=== PATIENT | female | born 1940 | race Caucasian/White ===

== ENCOUNTER 2018-04-13 12:45 | Outpatient (RCR) | payer MEDICARE, SELFPAY ==
--- NOTE | 2018-01-31 07:24 | PT.OIE ---
Current Diagnoses Unilateral primary osteoarthritis, left knee (01/30/18) Provider Visit Care Team Role Provider Type Doctor MD Kiel Attending Provider Non-Staff Specialty: Medical Address: Phone: Fax: Email: Physical Therapy Initial Evaluation PT-OP-A Visit Information Start: 01/30/18 15:55 Freq: Status: Active Protocol: Document 01/30/18 15:56 EA (Rec: 01/30/18 16:06 EA [id number]) Out-Patient Physical Therapy Visit Information Visit Information Visit Type Initial Evaluation Total Visit Minutes 45 Evaluation Information Evaluation Date 01/30/18 PT-OP-B Current Condition Start: 01/30/18 15:55 Freq: Status: Active Protocol: Document 01/30/18 15:56 EA (Rec: 01/30/18 16:06 EA [id number]) Current Condition History of Current Condition Onset Date S/P left TKA 01/03/18 Current Complaints Decreased functional mobility tolerance due to pain History of Current Condition S/P Left TKA 01/03/18 Prior Treatments and Tests 2 weeks Physical rehabilation at [place] Future Testing and Treatments Planned Follow up to surgeon on January Treatment Goals Patient/Caregiver Goals 1. Be able to perform cyling 2. be able to row the boat 3. 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 Patient Reported Progress Improving Patient Questionnaires Lower Extremity Functional Scale LEFS Impairment 40 to 59% Impaired (Score 32- 47) OP-PT Pain Assessment Pain Assessment Grid Paper Pain Assessment Grid Completed Yes Home Pain Medication Use Pain Medications Used Yes Patient Goal see chart Pain Behaviors Pain Behaviors Guarding Comments Pain Comments Noted muscle guarding and decreased weight bearing tolerance. PT-OP-F Manual Assessment Start: 01/30/18 15:55 Freq: Status: Active Protocol: Document 01/30/18 16:06 EA (Rec: 01/30/18 16:35 EA [id number]) Manual Assessments Soft Tissue Assessment Soft Tissue Mobility Assessment Tight left hasmtring, quads, calf mucles Joint Mobility Assessment Joint Mobility Assessment N/A at this time due ms guarding PT-OP-G Mobility & Gait Start: 01/30/18 15:55 Freq: Status: Active Protocol: Document 01/30/18 16:06 EA (Rec: 01/30/18 16:35 EA [id number]) OP Gait Assessment Gait Gait Assistance Required: Independent Able to Maintain Weight Bearing Status Yes During Gait Assistive Devices Assistive Device Straight Cane Gait Deviations General Gait Pattern Antalgic Factors Limiting Gait Function Factors Limiting Gait Function Limited Range of Motion Pain Stair Climbing Evaluation Evaluation Level of Assist On Stairs Independent Devices Stair Climbing Assistive Devices Straight Cane Technique/Endurance Stair Climbing Direction Ascend Stair Climbing Technique Step to Step Number of Steps Climbed 6 Query Text: PT-OP-J Posture/Palpation/Skin Start: 01/30/18 15:55 Freq: Status: Active Protocol: Document 01/30/18 16:06 EA (Rec: 01/30/18 16:35 EA [id number]) Palpation Assessment Location One Palpation Location left quads, hamstring, calf Palpation Findings Muscle Guarding Tenderness Skin Assessment Circumference Measurement 1 Location left mid knee joint Measurement (Centimeters) 42 Comments Left 42 cm; R 37 Incisional Assessment Incision Appearance/Comments no acute signs of inflammation /infection and is healing well . PT-OP-K Range of Motion Start: 01/30/18 15:55 Freq: Status: Active Protocol: Document 01/30/18 16:06 EA (Rec: 01/30/18 16:35 EA [id number]) Knee Goniometric Range of Motion Knee Measured in Degrees Right Patient Position Supine Flexion Active (120-145 degrees) 125 Extension Active (degrees) 0 Left Patient Position Supine Flexion Active (120-145 degrees) 75 L Flexion Passive (120-145 degrees) 78 L Extension Active (degrees) 10 ROM Limitations Knee ROM Limitations Soft Tissue Tightness Pain PT-OP-M Strength Start: 01/30/18 15:55 Freq: Status: Active Protocol: Document 01/30/18 16:06 EA (Rec: 01/30/18 16:35 EA [id number]) Hip Strength Hip Manual Muscle Testing Right Flexion (L2) 5 Normal Extension (S1) 5 Normal Abduction 5 Normal Adduction 5 Normal External Rotation 4+ Good+ Internal Rotation 4+ Good+ Left Flexion (L2) 3+ Fair+ Extension (S1) 4- Good- Abduction 4- Good- Adduction 3+ Fair+ Knee Strength Knee Manual Muscle Testing Right Flexion (S2) 5 Normal Extension (L3) 5 Normal Left Reason Not Measured Orthopedic Precautions PT-OP-R Modalities Start: 01/30/18 15:55 Freq: Status: Active Protocol: Document 01/30/18 16:06 EA (Rec: 01/30/18 16:35 EA [id number]) Hot Pack/Cold Pack Treatment Cold Pack Patient Position Hooklying Treatment Duration (minutes) 15 Patient Tolerance Good PT-OP-T Assessment and Plan Start: 01/30/18 15:55 Freq: Status: Active Protocol: Document 01/30/18 16:06 EA (Rec: 01/30/18 16:35 EA [id number]) Physical Therapy Assessment Rehab Potential Rehabilitation Potential Good Evaluation Complexity Number of Personal Factors/Comorbidities 1-2 Number of Body Systems Impaired 1-2 Clinical Presentation at Evaluation Stable Impairments Impairments Activity Tolerance Edema Pain ROM Soft Tissue Mobility Strength Goals Four Impairment LEFS Funding Coordinator Goal (LTG) Patient will reach 55/80 of LEFs LTG Duration 6 weeks Three Impairment knee ROM Funding Coordinator Goal (LTG) Patient will exhibit left knee flexion/extnsion of 0-125 for functional squating activities. LTG Duration 6 weeks Two Impairment edema Short Term Goal (STG) Patient will exhibits exhibit decrease left knee edema to decrease pain and imrpove weight bearing tolerance LTG Duration 3 weeks One Impairment Impaired knee strength Alf Goal (LTG) Patient will exhibit MMT of 4/ 5 to left knee flexors and extensors to enable patient perform stairs and other functional mobility without difficulty LTG Duration 6 wks Assessment Summary Assessment Pleasant 77 y/o F patient presented with left TKA on 08/12 and exhibited good healing with no signs of acuet infection/inflammation. However, patient exhibits knee extensors/ flexors weakness and limited knee ROM w/ muscle guarding and tightness. Due to impaired strength and ROM, patient demonstrated gait difficulty and weight bearing tolerance activities. In my professsional, patient requires skilled PT to address the aforementioned deficits to reach highest functional mobility. Patient demonstrates good potential for recovery. Physical Therapy Plan Frequency and Duration Frequency of Treatment 2x/Week Plan of Care Start Date 01/30/18 Plan of Care End Date 03/27/18 Therapeutic Interventions Therapeutic Interventions Balance Training Gait Training Home Exercise Program Joint Mobilizations Manual Therapy Self-Care/Home Management Soft Tissue Mobilization Therapeutic Activities Therapeutic Exercises Modalities Cold Pack/Ice Massage Electric Stimulation Hot Packs Ultrasound Provider Signature Date
--- NOTE | 2018-02-01 14:13 | PT.OTN ---
Current Diagnoses Unilateral primary osteoarthritis, left knee (02/01/18) Physical Therapy Treatment Note PT-OP-A Visit Information Start: 01/30/18 15:55 Freq: Status: Active Protocol: Document 02/01/18 13:59 EA (Rec: 02/01/18 14:10 EA [id number]) Out-Patient Physical Therapy Visit Information Visit Information Visit Type Treatment Note Visit Start Time 12:15 Visit Stop Time 01:15 Total Visit Minutes 60 Visit Number 2 PT-OP-B Current Condition Start: 01/30/18 15:55 Freq: Status: Active Protocol: Document 01/30/18 15:56 EA (Rec: 01/30/18 16:06 EA [id number]) Current Condition History of Current Condition Onset Date S/P left TKA 01/03/18 Current Complaints Decreased functional mobility tolerance due to pain History of Current Condition S/P Left TKA 01/03/18 Prior Treatments and Tests 2 weeks Physical rehabilation at [place] Future Testing and Treatments Planned Follow up to surgeon on January Treatment Goals Patient/Caregiver Goals 1. Be able to perform cyling 2. be able to row the boat 3. 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 PT-OP-F Manual Assessment Start: 01/30/18 15:55 Freq: Status: Active Protocol: Document 01/30/18 16:06 EA (Rec: 01/30/18 16:35 EA [id number]) Manual Assessments Soft Tissue Assessment Soft Tissue Mobility Assessment Tight left hasmtring, quads, calf mucles Joint Mobility Assessment Joint Mobility Assessment N/A at this time due ms guarding PT-OP-G Mobility & Gait Start: 01/30/18 15:55 Freq: Status: Active Protocol: Document 01/30/18 16:06 EA (Rec: 01/30/18 16:35 EA [id number]) OP Gait Assessment Gait Gait Assistance Required: Independent Able to Maintain Weight Bearing Status Yes During Gait Assistive Devices Assistive Device Straight Cane Gait Deviations General Gait Pattern Antalgic Factors Limiting Gait Function Factors Limiting Gait Function Limited Range of Motion Pain Stair Climbing Evaluation Evaluation Level of Assist On Stairs Independent Devices Stair Climbing Assistive Devices Straight Cane Technique/Endurance Stair Climbing Direction Ascend Stair Climbing Technique Step to Step Number of Steps Climbed 6 Query Text: PT-OP-J Posture/Palpation/Skin Start: 01/30/18 15:55 Freq: Status: Active Protocol: Document 01/30/18 16:06 EA (Rec: 01/30/18 16:35 EA [id number]) Palpation Assessment Location One Palpation Location left quads, hamstring, calf Palpation Findings Muscle Guarding Tenderness Skin Assessment Circumference Measurement 1 Location left mid knee joint Measurement (Centimeters) 42 Comments Left 42 cm; R 37 Incisional Assessment Incision Appearance/Comments no acute signs of inflammation /infection and is healing well . PT-OP-K Range of Motion Start: 01/30/18 15:55 Freq: Status: Active Protocol: Document 01/30/18 16:06 EA (Rec: 01/30/18 16:35 EA [id number]) Knee Goniometric Range of Motion Knee Measured in Degrees Right Patient Position Supine Flexion Active (degrees) 125 Extension Active (degrees) 0 Left Patient Position Supine Flexion Active (degrees) 75 Flexion Passive (degrees) 78 Extension Active (degrees) 10 Knee ROM Limitations Knee ROM Limitations Soft Tissue Tightness Pain PT-OP-M Strength Start: 01/30/18 15:55 Freq: Status: Active Protocol: Document 01/30/18 16:06 EA (Rec: 01/30/18 16:35 EA [id number]) Hip Strength Hip Manual Muscle Testing Right Flexion (L2) 5 Normal Extension (S1) 5 Normal Abduction 5 Normal Adduction 5 Normal External Rotation 4+ Good+ Internal Rotation 4+ Good+ Left Flexion (L2) 3+ Fair+ Extension (S1) 4- Good- Abduction 4- Good- Adduction 3+ Fair+ Knee Strength Knee Manual Muscle Testing Right Flexion (S2) 5 Normal Extension (L3) 5 Normal Left Reason Not Measured Orthopedic Precautions PT-OP-Q Treatments Start: 01/30/18 15:55 Freq: Status: Active Protocol: Document 02/01/18 13:59 EA (Rec: 02/01/18 14:10 EA [id number]) Cardio Equipment Recumbent Stepper (Sci-Fit) Duration (Minutes) 10 Resistance 1-2 Seat Position 13-11 Gym Equipment Shuttle Recovery Unilateral Squats Resistance 1 cord Reps/Time 15 x 2 Bilateral Squats Details 0-90 knee flexion Resistance 2 cords Reps/Time 15 x 2 Therapeutic Exercises Supine Exercises 1 Supine Exercise Name Quads over roll Side left Equipment Used Rolled towel Reps/Minutes x 5 SH x 10 reps Sitting Exercises 1 Sitting Exercise Name Full quad extnsion Side left Reps/Minutes 15 reps x 2 Standing Exercises 3 Standing Exercise Name Heel and toe raises Comments x 15 reps x 2 2 Standing Exercise Name // bars sit to stand Comments x 10 reps x 2 1 Standing Exercise Name hip 3 way and knee flexion Reps/Minutes 15 x 2sets Manual Therapy Treatment Soft Tissue Mobilization 1 Body Location left Hams, Quads, calves Mobilization Type Manual Lymphatic Drainage Myofascial Release Intensity/Depth Superficial Body Position Supine PT-OP-R Modalities Start: 01/30/18 15:55 Freq: Status: Active Protocol: Document 02/01/18 13:59 EA (Rec: 02/01/18 14:10 EA [id number]) Electric Stimulation Electric Stimulation Interferential Current (IFC) Body Location left quads Duration (Minutes) 15 Combined With Heat/Cold Cold Pack PT-OP-T Assessment and Plan Start: 01/30/18 15:55 Freq: Status: Active Protocol: Document 02/01/18 13:59 EA (Rec: 02/01/18 14:10 EA [id number]) Physical Therapy Assessment Assessment Summary Assessment Tolerated treatment well. Physical Therapy Plan Next Visit Focus/Plan Next Visit Plan Cont. with current plan.
--- NOTE | 2018-02-05 14:28 | PT.OTN ---
Current Diagnoses Unilateral primary osteoarthritis, left knee (02/05/18) Physical Therapy Treatment Note PT-OP-A Visit Information Start: 01/30/18 15:55 Freq: Status: Active Protocol: Document 02/05/18 14:17 EA (Rec: 02/05/18 14:28 EA [id number]) Out-Patient Physical Therapy Visit Information Visit Information Visit Type Treatment Note Total Visit Minutes 60 Visit Number 3 PT-OP-B Current Condition Start: 01/30/18 15:55 Freq: Status: Active Protocol: Document 01/30/18 15:56 EA (Rec: 01/30/18 16:06 EA [id number]) Current Condition History of Current Condition Onset Date S/P left TKA 01/03/18 Current Complaints Decreased functional mobility tolerance due to pain History of Current Condition S/P Left TKA 01/03/18 Prior Treatments and Tests 2 weeks Physical rehabilation at [place] Future Testing and Treatments Planned Follow up to surgeon on January Treatment Goals Patient/Caregiver Goals 1. Be able to perform cyling 2. be able to row the boat 3. 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 Current Functional Impairments (Reported) Functional Limitations- ADL's Moderate difficulty w/ driving , toileting and bathig Functional Limitations- Mobility/Gait Moderate difficulty w/ uneven surface and stairs Functional Limitations- Recreation/ Unable at this time Hobbies PT-OP-C Subjective Start: 01/30/18 15:55 Freq: Status: Active Protocol: Document 02/05/18 14:17 EA (Rec: 02/05/18 14:28 EA [id number]) OP-PT Subjective Patient Comments Patient Comments Patient reports left lateral calf pain increased while at sleep; states had a long walk yesterday in the park and unable to peform some of the HEP. Denies warmth ans swelling to left calf. PT-OP-F Manual Assessment Start: 01/30/18 15:55 Freq: Status: Active Protocol: Document 01/30/18 16:06 EA (Rec: 01/30/18 16:35 EA [id number]) Manual Assessments Soft Tissue Assessment Soft Tissue Mobility Assessment Tight left hasmtring, quads, calf mucles Joint Mobility Assessment Joint Mobility Assessment N/A at this time due ms guarding PT-OP-G Mobility & Gait Start: 01/30/18 15:55 Freq: Status: Active Protocol: Document 01/30/18 16:06 EA (Rec: 01/30/18 16:35 EA [id number]) OP Gait Assessment Gait Gait Assistance Required: Independent Able to Maintain Weight Bearing Status Yes During Gait Assistive Devices Assistive Device Straight Cane Gait Deviations General Gait Pattern Antalgic Factors Limiting Gait Function Factors Limiting Gait Function Limited Range of Motion Pain Stair Climbing Evaluation Evaluation Level of Assist On Stairs Independent Devices Stair Climbing Assistive Devices Straight Cane Technique/Endurance Stair Climbing Direction Ascend Stair Climbing Technique Step to Step Number of Steps Climbed 6 Query Text: PT-OP-J Posture/Palpation/Skin Start: 01/30/18 15:55 Freq: Status: Active Protocol: Document 01/30/18 16:06 EA (Rec: 01/30/18 16:35 EA [id number]) Palpation Assessment Location One Palpation Location left quads, hamstring, calf Palpation Findings Muscle Guarding Tenderness Skin Assessment Circumference Measurement 1 Location left mid knee joint Measurement (Centimeters) 42 Comments Left 42 cm; R 37 Incisional Assessment Incision Appearance/Comments no acute signs of inflammation /infection and is healing well . PT-OP-K Range of Motion Start: 01/30/18 15:55 Freq: Status: Active Protocol: Document 01/30/18 16:06 EA (Rec: 01/30/18 16:35 EA [id number]) Knee Goniometric Range of Motion Knee Measured in Degrees Right Patient Position Supine Flexion Active (degrees) 125 Extension Active (degrees) 0 Left Patient Position Supine Flexion Active (degrees) 75 Flexion Passive (degrees) 78 Extension Active (degrees) 10 Knee ROM Limitations Knee ROM Limitations Soft Tissue Tightness Pain PT-OP-M Strength Start: 01/30/18 15:55 Freq: Status: Active Protocol: Document 01/30/18 16:06 EA (Rec: 01/30/18 16:35 EA [id number]) Hip Strength Hip Manual Muscle Testing Right Flexion (L2) 5 Normal Extension (S1) 5 Normal Abduction 5 Normal Adduction 5 Normal External Rotation 4+ Good+ Internal Rotation 4+ Good+ Left Flexion (L2) 3+ Fair+ Extension (S1) 4- Good- Abduction 4- Good- Adduction 3+ Fair+ Knee Strength Knee Manual Muscle Testing Right Flexion (S2) 5 Normal Extension (L3) 5 Normal Left Reason Not Measured Orthopedic Precautions PT-OP-Q Treatments Start: 01/30/18 15:55 Freq: Status: Active Protocol: Document 02/05/18 14:17 EA (Rec: 02/05/18 14:28 EA [id number]) Cardio Equipment Recumbent Stepper (Sci-Fit) Duration (Minutes) 10 Resistance 1-2 Seat Position 13-10 Therapeutic Exercises Supine Exercises 1 Supine Exercise Name Quads over roll Side left Equipment Used Rolled towel Reps/Minutes x 5 SH x 10 reps Sitting Exercises 1 Sitting Exercise Name Full quad extnsion Side left Reps/Minutes 15 reps x 2 Standing Exercises 3 Standing Exercise Name Heel and toe raises Comments x 15 reps x 2 2 Standing Exercise Name Rails sit to stand Comments x 10 reps x 2 1 Standing Exercise Name hip 3 way and knee flexion Reps/Minutes 15 x 2sets Manual Therapy Treatment Soft Tissue Mobilization 1 Body Location left Hams and Quads Mobilization Type Manual Lymphatic Drainage Myofascial Release Intensity/Depth Superficial Body Position Supine PT-OP-R Modalities Start: 01/30/18 15:55 Freq: Status: Active Protocol: Document 02/05/18 14:17 EA (Rec: 02/05/18 14:28 EA [id number]) Electric Stimulation Electric Stimulation Interferential Current (IFC) Body Location left quads Duration (Minutes) 15 Combined With Heat/Cold Cold Pack Hot Pack/Cold Pack Treatment Cold Pack Patient Position Hooklying Treatment Duration (minutes) 15 Patient Tolerance Good PT-OP-T Assessment and Plan Start: 01/30/18 15:55 Freq: Status: Active Protocol: Document 02/05/18 14:17 EA (Rec: 02/05/18 14:28 EA [id number]) Physical Therapy Assessment Assessment Summary Assessment Patient tolerated treatment except with left calf STM due to increased sensitivity; no signs of acute inflammation noted. Recommended to patient to not miss sched surgeon appointment for furhter follow . Patient still exhibits limited knee flexion due to pain and quads tightness. Physical Therapy Plan Next Visit Focus/Plan Next Visit Plan Cont with serafin plan.
--- NOTE | 2018-02-07 17:00 | PT.OTN ---
Current Diagnoses Unilateral primary osteoarthritis, left knee (02/07/18) Physical Therapy Treatment Note PT-OP-A Visit Information Start: 01/30/18 15:55 Freq: Status: Active Protocol: Document 02/07/18 15:32 EA (Rec: 02/07/18 15:36 EA [id number]) Out-Patient Physical Therapy Visit Information Visit Information Visit Type Treatment Note Visit Start Time 12:15 Visit Stop Time 01:15 Total Visit Minutes 60 Visit Number 4 PT-OP-B Current Condition Start: 01/30/18 15:55 Freq: Status: Active Protocol: Document 01/30/18 15:56 EA (Rec: 01/30/18 16:06 EA [id number]) Current Condition History of Current Condition Onset Date S/P left TKA 01/03/18 Current Complaints Decreased functional mobility tolerance due to pain History of Current Condition S/P Left TKA 01/03/18 Prior Treatments and Tests 2 weeks Physical rehabilation at [place] Future Testing and Treatments Planned Follow up to surgeon on January Treatment Goals Patient/Caregiver Goals 1. Be able to perform cyling 2. be able to row the boat 3. 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 Current Functional Impairments (Reported) Functional Limitations- ADL's Moderate difficulty w/ driving , toileting and bathig Functional Limitations- Mobility/Gait Moderate difficulty w/ uneven surface and stairs Functional Limitations- Recreation/ Unable at this time Hobbies PT-OP-C Subjective Start: 01/30/18 15:55 Freq: Status: Active Protocol: Document 02/07/18 15:32 EA (Rec: 02/07/18 15:36 EA [id number]) OP-PT Subjective Patient Comments Patient Comments Patient reports knee pain is improving and she has been icing the knee and following recommended HEP. Patient also reports that she ahs the parts driver to bring her to [place] and that does not require her to drive. Patient Reported Progress Improving PT-OP-F Manual Assessment Start: 01/30/18 15:55 Freq: Status: Active Protocol: Document 01/30/18 16:06 EA (Rec: 01/30/18 16:35 EA [id number]) Manual Assessments Soft Tissue Assessment Soft Tissue Mobility Assessment Tight left hasmtring, quads, calf mucles Joint Mobility Assessment Joint Mobility Assessment N/A at this time due ms guarding PT-OP-G Mobility & Gait Start: 01/30/18 15:55 Freq: Status: Active Protocol: Document 01/30/18 16:06 EA (Rec: 01/30/18 16:35 EA [id number]) OP Gait Assessment Gait Gait Assistance Required: Independent Able to Maintain Weight Bearing Status Yes During Gait Assistive Devices Assistive Device Straight Cane Gait Deviations General Gait Pattern Antalgic Factors Limiting Gait Function Factors Limiting Gait Function Limited Range of Motion Pain Stair Climbing Evaluation Evaluation Level of Assist On Stairs Independent Devices Stair Climbing Assistive Devices Straight Cane Technique/Endurance Stair Climbing Direction Ascend Stair Climbing Technique Step to Step Number of Steps Climbed 6 Query Text: PT-OP-J Posture/Palpation/Skin Start: 01/30/18 15:55 Freq: Status: Active Protocol: Document 01/30/18 16:06 EA (Rec: 01/30/18 16:35 EA [id number]) Palpation Assessment Location One Palpation Location left quads, hamstring, calf Palpation Findings Muscle Guarding Tenderness Skin Assessment Circumference Measurement 1 Location left mid knee joint Measurement (Centimeters) 42 Comments Left 42 cm; R 37 Incisional Assessment Incision Appearance/Comments no acute signs of inflammation /infection and is healing well . PT-OP-K Range of Motion Start: 01/30/18 15:55 Freq: Status: Active Protocol: Document 01/30/18 16:06 EA (Rec: 01/30/18 16:35 EA [id number]) Knee Goniometric Range of Motion Knee Measured in Degrees Right Patient Position Supine Flexion Active (degrees) 125 Extension Active (degrees) 0 Left Patient Position Supine Flexion Active (degrees) 75 Flexion Passive (degrees) 78 Extension Active (degrees) 10 Knee ROM Limitations Knee ROM Limitations Soft Tissue Tightness Pain PT-OP-M Strength Start: 01/30/18 15:55 Freq: Status: Active Protocol: Document 01/30/18 16:06 EA (Rec: 01/30/18 16:35 EA [id number]) Hip Strength Hip Manual Muscle Testing Right Flexion (L2) 5 Normal Extension (S1) 5 Normal Abduction 5 Normal Adduction 5 Normal External Rotation 4+ Good+ Internal Rotation 4+ Good+ Left Flexion (L2) 3+ Fair+ Extension (S1) 4- Good- Abduction 4- Good- Adduction 3+ Fair+ Knee Strength Knee Manual Muscle Testing Right Flexion (S2) 5 Normal Extension (L3) 5 Normal Left Reason Not Measured Orthopedic Precautions PT-OP-Q Treatments Start: 01/30/18 15:55 Freq: Status: Active Protocol: Document 02/07/18 15:32 EA (Rec: 02/07/18 15:36 EA [id number]) Cardio Equipment Recumbent Stepper (Sci-Fit) Duration (Minutes) 10 Resistance 1-2 Seat Position 13-10 Gym Equipment Shuttle Recovery Unilateral Squats Resistance 1 cord Reps/Time 15 x 2 Bilateral Squats Details 0-90 knee flexion Resistance 2 cords Reps/Time 15 x 2 Therapeutic Exercises Supine Exercises 1 Supine Exercise Name Quads over roll Side left Equipment Used Rolled towel Reps/Minutes x 5 SH x 10 reps Sitting Exercises 1 Sitting Exercise Name Full quad extnsion Side left Reps/Minutes 15 reps x 2 Standing Exercises 3 Standing Exercise Name Heel and toe raises Comments x 15 reps x 2 1 Standing Exercise Name hip 3 way and knee flexion Reps/Minutes 15 x 2sets Manual Therapy Treatment Soft Tissue Mobilization 1 Body Location left Hams and Quads Mobilization Type Manual Lymphatic Drainage Myofascial Release Intensity/Depth Superficial Body Position Supine PT-OP-R Modalities Start: 01/30/18 15:55 Freq: Status: Active Protocol: Document 02/07/18 15:32 EA (Rec: 02/07/18 15:36 EA [id number]) Electric Stimulation Electric Stimulation Interferential Current (IFC) Body Location left quads Duration (Minutes) 15 Combined With Heat/Cold Cold Pack PT-OP-T Assessment and Plan Start: 01/30/18 15:55 Freq: Status: Active Protocol: Document 02/07/18 15:32 EA (Rec: 02/07/18 15:36 EA [id number]) Physical Therapy Assessment Assessment Summary Assessment Tolerated treatment well. Physical Therapy Plan Next Visit Focus/Plan Next Visit Plan Cont with current treatment.
--- NOTE | 2018-02-20 13:11 | PT.OTN ---
Current Diagnoses Unilateral primary osteoarthritis, left knee (02/20/18) Physical Therapy Treatment Note PT-OP-A Visit Information Start: 01/30/18 15:55 Freq: Status: Active Protocol: Document 02/20/18 13:05 EA (Rec: 02/20/18 13:11 EA [id number]) Out-Patient Physical Therapy Visit Information Visit Information Visit Type Treatment Note Visit Start Time 12:15 Visit Stop Time 01:15 Total Visit Minutes 60 Visit Number 5 PT-OP-B Current Condition Start: 01/30/18 15:55 Freq: Status: Active Protocol: Document 01/30/18 15:56 EA (Rec: 01/30/18 16:06 EA [id number]) Current Condition History of Current Condition Onset Date S/P left TKA 01/03/18 Current Complaints Decreased functional mobility tolerance due to pain History of Current Condition S/P Left TKA 01/03/18 Prior Treatments and Tests 2 weeks Physical rehabilation at [place] Future Testing and Treatments Planned Follow up to surgeon on January Treatment Goals Patient/Caregiver Goals 1. Be able to perform cyling 2. be able to row the boat 3. 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 PT-OP-F Manual Assessment Start: 01/30/18 15:55 Freq: Status: Active Protocol: Document 01/30/18 16:06 EA (Rec: 01/30/18 16:35 EA [id number]) Manual Assessments Soft Tissue Assessment Soft Tissue Mobility Assessment Tight left hasmtring, quads, calf mucles Joint Mobility Assessment Joint Mobility Assessment N/A at this time due ms guarding PT-OP-G Mobility & Gait Start: 01/30/18 15:55 Freq: Status: Active Protocol: Document 01/30/18 16:06 EA (Rec: 01/30/18 16:35 EA [id number]) OP Gait Assessment Gait Gait Assistance Required: Independent Able to Maintain Weight Bearing Status Yes During Gait Assistive Devices Assistive Device Straight Cane Gait Deviations General Gait Pattern Antalgic Factors Limiting Gait Function Factors Limiting Gait Function Limited Range of Motion Pain Stair Climbing Evaluation Evaluation Level of Assist On Stairs Independent Devices Stair Climbing Assistive Devices Straight Cane Technique/Endurance Stair Climbing Direction Ascend Stair Climbing Technique Step to Step Number of Steps Climbed 6 Query Text: PT-OP-J Posture/Palpation/Skin Start: 01/30/18 15:55 Freq: Status: Active Protocol: Document 01/30/18 16:06 EA (Rec: 01/30/18 16:35 EA [id number]) Palpation Assessment Location One Palpation Location left quads, hamstring, calf Palpation Findings Muscle Guarding Tenderness Skin Assessment Circumference Measurement 1 Location left mid knee joint Measurement (Centimeters) 42 Comments Left 42 cm; R 37 Incisional Assessment Incision Appearance/Comments no acute signs of inflammation /infection and is healing well . PT-OP-K Range of Motion Start: 01/30/18 15:55 Freq: Status: Active Protocol: Document 01/30/18 16:06 EA (Rec: 01/30/18 16:35 EA [id number]) Knee Goniometric Range of Motion Knee Measured in Degrees Right Patient Position Supine Flexion Active (degrees) 125 Extension Active (degrees) 0 Left Patient Position Supine Flexion Active (degrees) 75 Flexion Passive (degrees) 78 Extension Active (degrees) 10 Knee ROM Limitations Knee ROM Limitations Soft Tissue Tightness Pain PT-OP-M Strength Start: 01/30/18 15:55 Freq: Status: Active Protocol: Document 01/30/18 16:06 EA (Rec: 01/30/18 16:35 EA [id number]) Hip Strength Hip Manual Muscle Testing Right Flexion (L2) 5 Normal Extension (S1) 5 Normal Abduction 5 Normal Adduction 5 Normal External Rotation 4+ Good+ Internal Rotation 4+ Good+ Left Flexion (L2) 3+ Fair+ Extension (S1) 4- Good- Abduction 4- Good- Adduction 3+ Fair+ Knee Strength Knee Manual Muscle Testing Right Flexion (S2) 5 Normal Extension (L3) 5 Normal Left Reason Not Measured Orthopedic Precautions PT-OP-Q Treatments Start: 01/30/18 15:55 Freq: Status: Active Protocol: Document 02/20/18 13:05 EA (Rec: 02/20/18 13:11 EA [id number]) Gym Equipment Shuttle Recovery Unilateral Squats Resistance 1.5 cord Reps/Time 15 x 2 Bilateral Squats Details 0-90 knee flexion Resistance 3 cords Reps/Time 15 x 2 Therapeutic Exercises Supine Exercises 1 Supine Exercise Name Quads over roll Side left Equipment Used Rolled towel Reps/Minutes x 5 SH x 10 reps Sitting Exercises 1 Sitting Exercise Name Full quad extnsion Side left Resistance 2 lbs Reps/Minutes 15 reps x 2 Standing Exercises 2 Standing Exercise Name Rails sit to stand Comments x 10 reps x 2 Manual Therapy Treatment Soft Tissue Mobilization 1 Body Location left Hams and Quads Mobilization Type Manual Lymphatic Drainage Myofascial Release Intensity/Depth Superficial Body Position Supine PT-OP-R Modalities Start: 01/30/18 15:55 Freq: Status: Active Protocol: Document 02/20/18 13:05 EA (Rec: 02/20/18 13:11 EA [id number]) Electric Stimulation Electric Stimulation Interferential Current (IFC) Body Location left quads Duration (Minutes) 15 Combined With Heat/Cold Cold Pack Hot Pack/Cold Pack Treatment Cold Pack Patient Position Hooklying Treatment Duration (minutes) 15 Patient Tolerance Good PT-OP-T Assessment and Plan Start: 01/30/18 15:55 Freq: Status: Active Protocol: Document 02/20/18 13:05 EA (Rec: 02/20/18 13:11 EA [id number]) Physical Therapy Assessment Assessment Summary Assessment Noted extnsion lag by 5 degrees; re-enforced patient compliance w/ HEP. Tolerated treatment well today. Physical Therapy Plan Next Visit Focus/Plan Next Visit Plan Cont current plan; advance as tolerated Please Sign and Return: I have reviewed this Plan of Care and certify that the skilled therapy services above are required to meet the patient???s needs. Physician Signature Date Printed Name and Credentials Clinical Instructor Signature Printed Name and Credentials
--- NOTE | 2018-02-22 14:29 | PT.OTN ---
Current Diagnoses Unilateral primary osteoarthritis, left knee (02/22/18) Physical Therapy Treatment Note PT-OP-A Visit Information Start: 01/30/18 15:55 Freq: Status: Active Protocol: Document 02/22/18 14:25 EA (Rec: 02/22/18 14:29 EA [id number]) Out-Patient Physical Therapy Visit Information Visit Information Visit Type Treatment Note Visit Start Time 12:15 Visit Stop Time 01:15 Total Visit Minutes 50 Visit Number 6 PT-OP-B Current Condition Start: 01/30/18 15:55 Freq: Status: Active Protocol: Document 01/30/18 15:56 EA (Rec: 01/30/18 16:06 EA [id number]) Current Condition History of Current Condition Onset Date S/P left TKA 01/03/18 Current Complaints Decreased functional mobility tolerance due to pain History of Current Condition S/P Left TKA 01/03/18 Prior Treatments and Tests 2 weeks Physical rehabilation at [place] Future Testing and Treatments Planned Follow up to surgeon on January Treatment Goals Patient/Caregiver Goals 1. Be able to perform cyling 2. be able to row the boat 3. 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 PT-OP-F Manual Assessment Start: 01/30/18 15:55 Freq: Status: Active Protocol: Document 01/30/18 16:06 EA (Rec: 01/30/18 16:35 EA [id number]) Manual Assessments Soft Tissue Assessment Soft Tissue Mobility Assessment Tight left hasmtring, quads, calf mucles Joint Mobility Assessment Joint Mobility Assessment N/A at this time due ms guarding PT-OP-G Mobility & Gait Start: 01/30/18 15:55 Freq: Status: Active Protocol: Document 01/30/18 16:06 EA (Rec: 01/30/18 16:35 EA [id number]) OP Gait Assessment Gait Gait Assistance Required: Independent Able to Maintain Weight Bearing Status Yes During Gait Assistive Devices Assistive Device Straight Cane Gait Deviations General Gait Pattern Antalgic Factors Limiting Gait Function Factors Limiting Gait Function Limited Range of Motion Pain Stair Climbing Evaluation Evaluation Level of Assist On Stairs Independent Devices Stair Climbing Assistive Devices Straight Cane Technique/Endurance Stair Climbing Direction Ascend Stair Climbing Technique Step to Step Number of Steps Climbed 6 Query Text: PT-OP-J Posture/Palpation/Skin Start: 01/30/18 15:55 Freq: Status: Active Protocol: Document 01/30/18 16:06 EA (Rec: 01/30/18 16:35 EA [id number]) Palpation Assessment Location One Palpation Location left quads, hamstring, calf Palpation Findings Muscle Guarding Tenderness Skin Assessment Circumference Measurement 1 Location left mid knee joint Measurement (Centimeters) 42 Comments Left 42 cm; R 37 Incisional Assessment Incision Appearance/Comments no acute signs of inflammation /infection and is healing well . PT-OP-K Range of Motion Start: 01/30/18 15:55 Freq: Status: Active Protocol: Document 01/30/18 16:06 EA (Rec: 01/30/18 16:35 EA [id number]) Knee Goniometric Range of Motion Knee Measured in Degrees Right Patient Position Supine Flexion Active (degrees) 125 Extension Active (degrees) 0 Left Patient Position Supine Flexion Active (degrees) 75 Flexion Passive (degrees) 78 Extension Active (degrees) 10 Knee ROM Limitations Knee ROM Limitations Soft Tissue Tightness Pain PT-OP-M Strength Start: 01/30/18 15:55 Freq: Status: Active Protocol: Document 01/30/18 16:06 EA (Rec: 01/30/18 16:35 EA [id number]) Hip Strength Hip Manual Muscle Testing Right Flexion (L2) 5 Normal Extension (S1) 5 Normal Abduction 5 Normal Adduction 5 Normal External Rotation 4+ Good+ Internal Rotation 4+ Good+ Left Flexion (L2) 3+ Fair+ Extension (S1) 4- Good- Abduction 4- Good- Adduction 3+ Fair+ Knee Strength Knee Manual Muscle Testing Right Flexion (S2) 5 Normal Extension (L3) 5 Normal Left Reason Not Measured Orthopedic Precautions PT-OP-Q Treatments Start: 01/30/18 15:55 Freq: Status: Active Protocol: Document 02/22/18 14:25 EA (Rec: 02/22/18 14:29 EA [id number]) Cardio Equipment Recumbent Stepper (Sci-Fit) Duration (Minutes) 10 Resistance 3 Seat Position 13-9 Gym Equipment Shuttle Recovery Unilateral Squats Resistance 2 Reps/Time 15 x 2 Bilateral Squats Details 0-90 knee flexion Resistance 4 cords Reps/Time 15 x 2 Therapeutic Exercises Supine Exercises 1 Supine Exercise Name Quads over roll Side left Equipment Used Rolled towel Reps/Minutes x 5 SH x 10 reps Sitting Exercises 1 Sitting Exercise Name Full quad extnsion Side left Resistance 2 -4lbs Reps/Minutes 15 reps x 2 Standing Exercises 3 Standing Exercise Name Heel and toe raises Comments x 15 reps x 2 2 Standing Exercise Name side steps squat with YTB Comments x 10 reps x 2 1 Standing Exercise Name hip 3 way and knee flexion Reps/Minutes 15 x 2sets Manual Therapy Treatment Soft Tissue Mobilization 1 Body Location left Hams and Quads Mobilization Type Manual Lymphatic Drainage Myofascial Release Intensity/Depth Superficial Body Position Supine PT-OP-R Modalities Start: 01/30/18 15:55 Freq: Status: Active Protocol: Document 02/22/18 14:25 EA (Rec: 02/22/18 14:29 EA [id number]) Electric Stimulation Electric Stimulation Interferential Current (IFC) Body Location left quads Duration (Minutes) 15 Combined With Heat/Cold Cold Pack PT-OP-T Assessment and Plan Start: 01/30/18 15:55 Freq: Status: Active Protocol: Document 02/22/18 14:25 EA (Rec: 02/22/18 14:29 EA [id number]) Physical Therapy Assessment Assessment Summary Assessment Tolerated treatment well Physical Therapy Plan Next Visit Focus/Plan Next Visit Plan Increase Standing exercises. Please Sign and Return: I have reviewed this Plan of Care and certify that the skilled therapy services above are required to meet the patient?s needs. Physician Signature Date Printed Name and Credentials Clinical Instructor Signature Printed Name and Credentials
--- NOTE | 2018-02-28 17:32 | PT.OTN ---
Current Diagnoses Unilateral primary osteoarthritis, left knee (02/28/18) Physical Therapy Treatment Note PT-OP-A Visit Information Start: 01/30/18 15:55 Freq: Status: Active Protocol: Document 02/28/18 17:28 EA (Rec: 02/28/18 17:32 EA [id number]) Out-Patient Physical Therapy Visit Information Visit Information Visit Type Treatment Note Visit Start Time 16:00 Visit Stop Time 16:45 Total Visit Minutes 50 Visit Number 7 PT-OP-B Current Condition Start: 01/30/18 15:55 Freq: Status: Active Protocol: Document 01/30/18 15:56 EA (Rec: 01/30/18 16:06 EA [id number]) Current Condition History of Current Condition Onset Date S/P left TKA 01/03/18 Current Complaints Decreased functional mobility tolerance due to pain History of Current Condition S/P Left TKA 01/03/18 Prior Treatments and Tests 2 weeks Physical rehabilation at [place] Future Testing and Treatments Planned Follow up to surgeon on January Treatment Goals Patient/Caregiver Goals 1. Be able to perform cyling 2. be able to row the boat 3. 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 Current Functional Impairments (Reported) Functional Limitations- ADL's Moderate difficulty w/ driving , toileting and bathig Functional Limitations- Mobility/Gait Moderate difficulty w/ uneven surface and stairs Functional Limitations- Recreation/ Unable at this time Hobbies PT-OP-C Subjective Start: 01/30/18 15:55 Freq: Status: Active Protocol: Document 02/28/18 17:28 EA (Rec: 02/28/18 17:32 EA [id number]) OP-PT Subjective Patient Comments Patient Comments Patient reports she has been compliant at home and feels that knee is improving well. Patient states that she is not taking pain medication most of the day. PT-OP-F Manual Assessment Start: 01/30/18 15:55 Freq: Status: Active Protocol: Document 01/30/18 16:06 EA (Rec: 01/30/18 16:35 EA [id number]) Manual Assessments Soft Tissue Assessment Soft Tissue Mobility Assessment Tight left hasmtring, quads, calf mucles Joint Mobility Assessment Joint Mobility Assessment N/A at this time due ms guarding PT-OP-G Mobility & Gait Start: 01/30/18 15:55 Freq: Status: Active Protocol: Document 01/30/18 16:06 EA (Rec: 01/30/18 16:35 EA [id number]) OP Gait Assessment Gait Gait Assistance Required: Independent Able to Maintain Weight Bearing Status Yes During Gait Assistive Devices Assistive Device Straight Cane Gait Deviations General Gait Pattern Antalgic Factors Limiting Gait Function Factors Limiting Gait Function Limited Range of Motion Pain Stair Climbing Evaluation Evaluation Level of Assist On Stairs Independent Devices Stair Climbing Assistive Devices Straight Cane Technique/Endurance Stair Climbing Direction Ascend Stair Climbing Technique Step to Step Number of Steps Climbed 6 Query Text: PT-OP-J Posture/Palpation/Skin Start: 01/30/18 15:55 Freq: Status: Active Protocol: Document 01/30/18 16:06 EA (Rec: 01/30/18 16:35 EA [id number]) Palpation Assessment Location One Palpation Location left quads, hamstring, calf Palpation Findings Muscle Guarding Tenderness Skin Assessment Circumference Measurement 1 Location left mid knee joint Measurement (Centimeters) 42 Comments Left 42 cm; R 37 Incisional Assessment Incision Appearance/Comments no acute signs of inflammation /infection and is healing well . PT-OP-K Range of Motion Start: 01/30/18 15:55 Freq: Status: Active Protocol: Document 01/30/18 16:06 EA (Rec: 01/30/18 16:35 EA [id number]) Knee Goniometric Range of Motion Knee Measured in Degrees Right Patient Position Supine Flexion Active (degrees) 125 Extension Active (degrees) 0 Left Patient Position Supine Flexion Active (degrees) 75 Flexion Passive (degrees) 78 Extension Active (degrees) 10 Knee ROM Limitations Knee ROM Limitations Soft Tissue Tightness Pain PT-OP-M Strength Start: 01/30/18 15:55 Freq: Status: Active Protocol: Document 01/30/18 16:06 EA (Rec: 01/30/18 16:35 EA [id number]) Hip Strength Hip Manual Muscle Testing Right Flexion (L2) 5 Normal Extension (S1) 5 Normal Abduction 5 Normal Adduction 5 Normal External Rotation 4+ Good+ Internal Rotation 4+ Good+ Left Flexion (L2) 3+ Fair+ Extension (S1) 4- Good- Abduction 4- Good- Adduction 3+ Fair+ Knee Strength Knee Manual Muscle Testing Right Flexion (S2) 5 Normal Extension (L3) 5 Normal Left Reason Not Measured Orthopedic Precautions PT-OP-Q Treatments Start: 01/30/18 15:55 Freq: Status: Active Protocol: Document 02/28/18 17:28 EA (Rec: 02/28/18 17:32 EA [id number]) Cardio Equipment Recumbent Stepper (Sci-Fit) Duration (Minutes) 10 Resistance 3 Seat Position 13-9 Therapeutic Exercises Supine Exercises 1 Supine Exercise Name Quads over roll Side left Equipment Used Rolled towel Reps/Minutes x 5 SH x 10 reps Sitting Exercises 1 Sitting Exercise Name Full quad extnsion Side left Resistance 2 -4lbs Reps/Minutes 15 reps x 2 Standing Exercises 3 Standing Exercise Name Heel and toe raises Comments x 15 reps x 2 2 Standing Exercise Name side steps squat with YTB Resistance YTB to both ankle Comments x 10 reps x 2 1 Standing Exercise Name hip 3 way and knee flexion Resistance 4 lbs AW Reps/Minutes 12 x 2sets Manual Therapy Treatment Soft Tissue Mobilization 1 Body Location left Hams and Quads Mobilization Type Manual Lymphatic Drainage Myofascial Release Intensity/Depth Superficial Body Position Supine PT-OP-R Modalities Start: 01/30/18 15:55 Freq: Status: Active Protocol: Document 02/28/18 17:28 EA (Rec: 02/28/18 17:32 EA [id number]) Electric Stimulation Electric Stimulation Interferential Current (IFC) Body Location left quads/distal Df muscles Duration (Minutes) 15 Combined With Heat/Cold Cold Pack PT-OP-T Assessment and Plan Start: 01/30/18 15:55 Freq: Status: Active Protocol: Document 02/28/18 17:28 EA (Rec: 02/28/18 17:32 EA [id number]) Physical Therapy Assessment Assessment Summary Assessment Patient is progressing well: improved ROM and strength noted at this time. Physical Therapy Plan Next Visit Focus/Plan Next Visit Plan Progress as tolerated Please Sign and Return: I have reviewed this Plan of Care and certify that the skilled therapy services above are required to meet the patient?s needs. Physician Signature Date Printed Name and Credentials Clinical Instructor Signature Printed Name and Credentials
--- NOTE | 2018-03-06 12:15 | PT.OTN ---
Current Diagnoses Unilateral primary osteoarthritis, left knee (03/06/18) Physical Therapy Treatment Note PT-OP-A Visit Information Start: 01/30/18 15:55 Freq: Status: Active Protocol: Document 03/06/18 09:50 EA (Rec: 03/06/18 09:56 EA [id number]) Out-Patient Physical Therapy Visit Information Visit Information Visit Type Treatment Note Total Visit Minutes 50 Visit Number 8 PT-OP-B Current Condition Start: 01/30/18 15:55 Freq: Status: Active Protocol: Document 01/30/18 15:56 EA (Rec: 01/30/18 16:06 EA [id number]) Current Condition History of Current Condition Onset Date S/P left TKA 01/03/18 Current Complaints Decreased functional mobility tolerance due to pain History of Current Condition S/P Left TKA 01/03/18 Prior Treatments and Tests 2 weeks Physical rehabilation at [place] Future Testing and Treatments Planned Follow up to surgeon on January Treatment Goals Patient/Caregiver Goals 1. Be able to perform cyling 2. be able to row the boat 3. 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 Pt reports has been compliant at home and noticed ROM and strength improvement. Patient Reported Progress Improving PT-OP-F Manual Assessment Start: 01/30/18 15:55 Freq: Status: Active Protocol: Document 01/30/18 16:06 EA (Rec: 01/30/18 16:35 EA [id number]) Manual Assessments Soft Tissue Assessment Soft Tissue Mobility Assessment Tight left hasmtring, quads, calf mucles Joint Mobility Assessment Joint Mobility Assessment N/A at this time due ms guarding PT-OP-G Mobility & Gait Start: 01/30/18 15:55 Freq: Status: Active Protocol: Document 01/30/18 16:06 EA (Rec: 01/30/18 16:35 EA [id number]) OP Gait Assessment Gait Gait Assistance Required: Independent Able to Maintain Weight Bearing Status Yes During Gait Assistive Devices Assistive Device Straight Cane Gait Deviations General Gait Pattern Antalgic Factors Limiting Gait Function Factors Limiting Gait Function Limited Range of Motion Pain Stair Climbing Evaluation Evaluation Level of Assist On Stairs Independent Devices Stair Climbing Assistive Devices Straight Cane Technique/Endurance Stair Climbing Direction Ascend Stair Climbing Technique Step to Step Number of Steps Climbed 6 PT-OP-J Posture/Palpation/Skin Start: 01/30/18 15:55 Freq: Status: Active Protocol: Document 01/30/18 16:06 EA (Rec: 01/30/18 16:35 EA [id number]) Palpation Assessment Location One Palpation Location left quads, hamstring, calf Palpation Findings Muscle Guarding Tenderness Skin Assessment Circumference Measurement 1 Location left mid knee joint Measurement (Centimeters) 42 Comments Left 42 cm; R 37 Incisional Assessment Incision Appearance/Comments no acute signs of inflammation /infection and is healing well . PT-OP-K Range of Motion Start: 01/30/18 15:55 Freq: Status: Active Protocol: Document 01/30/18 16:06 EA (Rec: 01/30/18 16:35 EA [id number]) Knee Goniometric Range of Motion Knee Measured in Degrees Right Patient Position Supine Flexion Active (degrees) 125 Extension Active (degrees) 0 Left Patient Position Supine Flexion Active (degrees) 75 Flexion Passive (degrees) 78 Extension Active (degrees) 10 Knee ROM Limitations Knee ROM Limitations Soft Tissue Tightness Pain PT-OP-M Strength Start: 01/30/18 15:55 Freq: Status: Active Protocol: Document 01/30/18 16:06 EA (Rec: 01/30/18 16:35 EA [id number]) Hip Strength Hip Manual Muscle Testing Right Flexion (L2) 5 Normal Extension (S1) 5 Normal Abduction 5 Normal Adduction 5 Normal External Rotation 4+ Good+ Internal Rotation 4+ Good+ Left Flexion (L2) 3+ Fair+ Extension (S1) 4- Good- Abduction 4- Good- Adduction 3+ Fair+ Knee Strength Knee Manual Muscle Testing Right Flexion (S2) 5 Normal Extension (L3) 5 Normal Left Reason Not Measured Orthopedic Precautions PT-OP-Q Treatments Start: 01/30/18 15:55 Freq: Status: Active Protocol: Document 03/06/18 09:50 EA (Rec: 03/06/18 09:56 EA [id number]) Cardio Equipment Recumbent Stepper (Sci-Fit) Duration (Minutes) 10 Resistance 3 Seat Position 13-9 Other no arm support Gym Equipment Shuttle Recovery Unilateral Squats Resistance 3 Reps/Time 15 x 2 Bilateral Squats Details 0-90 knee flexion Resistance 5 cords Reps/Time 12 x 2 Therapeutic Exercises Supine Exercises 1 Supine Exercise Name Quads over roll Side left Equipment Used Rolled towel Reps/Minutes x 5 SH x 10 reps Comments performed after joint mob Sitting Exercises 1 Sitting Exercise Name Full quad extnsion Side left Resistance 2 -5lbs Reps/Minutes 15 reps x 2 Standing Exercises 4 Standing Exercise Name 4 lunges Reps/Minutes x 12 x 2 sets Comments steps with hand rails support 3 Standing Exercise Name Heel and toe raises Comments x 15 reps x 2 2 Standing Exercise Name side steps squat with YTB Resistance YTB to both ankle Comments x 10 reps x 2 1 Standing Exercise Name hip 3 way and knee flexion Resistance 4 lbs AW Reps/Minutes 12 x 2sets Manual Therapy Treatment Soft Tissue Mobilization 1 Body Location left Hams and Quads Mobilization Type Manual Lymphatic Drainage Myofascial Release Intensity/Depth Superficial Body Position Supine Joint Mobilizations 1 Joint PF Grade II PT-OP-R Modalities Start: 01/30/18 15:55 Freq: Status: Active Protocol: Document 03/06/18 09:50 EA (Rec: 03/06/18 09:56 EA [id number]) Electric Stimulation Electric Stimulation Interferential Current (IFC) Body Location left quads/distal Df muscles Duration (Minutes) 15 Combined With Heat/Cold Cold Pack PT-OP-T Assessment and Plan Start: 01/30/18 15:55 Freq: Status: Active Protocol: Document 03/06/18 09:50 EA (Rec: 03/06/18 09:56 EA [id number]) Physical Therapy Assessment Assessment Summary Assessment Tolerated treatment well. Knee EXT improved after [facility] Physical Therapy Plan Next Visit Focus/Plan Next Visit Plan Cont. with current plan. Please Sign and Return: I have reviewed this Plan of Care and certify that the skilled therapy services above are required to meet the patient?s needs. Physician Signature Date Printed Name and Credentials Clinical Instructor Signature Printed Name and Credentials
--- NOTE | 2018-03-08 13:28 | PT.OTN ---
Current Diagnoses Unilateral primary osteoarthritis, left knee (03/08/18) Physical Therapy Treatment Note PT-OP-A Visit Information Start: 01/30/18 15:55 Freq: Status: Active Protocol: Document 03/08/18 13:15 EA (Rec: 03/08/18 13:22 EA [id number]) Out-Patient Physical Therapy Visit Information Visit Information Visit Type Treatment Note Total Visit Minutes 50 Visit Number 9 PT-OP-B Current Condition Start: 01/30/18 15:55 Freq: Status: Active Protocol: Document 01/30/18 15:56 EA (Rec: 01/30/18 16:06 EA [id number]) Current Condition History of Current Condition Onset Date S/P left TKA 01/03/18 Current Complaints Decreased functional mobility tolerance due to pain History of Current Condition S/P Left TKA 01/03/18 Prior Treatments and Tests 2 weeks Physical rehabilation at [place] Future Testing and Treatments Planned Follow up to surgeon on January Treatment Goals Patient/Caregiver Goals 1. Be able to perform cyling 2. be able to row the boat 3. 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 Current Functional Impairments (Reported) Functional Limitations- ADL's Moderate difficulty w/ driving , toileting and bathig Functional Limitations- Mobility/Gait Moderate difficulty w/ uneven surface and stairs Functional Limitations- Recreation/ Unable at this time Hobbies PT-OP-C Subjective Start: 01/30/18 15:55 Freq: Status: Active Protocol: Document 03/08/18 13:15 EA (Rec: 03/08/18 13:22 EA [id number]) OP-PT Subjective Patient Comments Patient Comments Patient reports left ant knee still hurts climbing stairs; states she is much active at this time; denies increased of swelling or loss of function. PT-OP-F Manual Assessment Start: 01/30/18 15:55 Freq: Status: Active Protocol: Document 01/30/18 16:06 EA (Rec: 01/30/18 16:35 EA [id number]) Manual Assessments Soft Tissue Assessment Soft Tissue Mobility Assessment Tight left hasmtring, quads, calf mucles Joint Mobility Assessment Joint Mobility Assessment N/A at this time due ms guarding PT-OP-G Mobility & Gait Start: 01/30/18 15:55 Freq: Status: Active Protocol: Document 01/30/18 16:06 EA (Rec: 01/30/18 16:35 EA [id number]) OP Gait Assessment Gait Gait Assistance Required: Independent Able to Maintain Weight Bearing Status Yes During Gait Assistive Devices Assistive Device Straight Cane Gait Deviations General Gait Pattern Antalgic Factors Limiting Gait Function Factors Limiting Gait Function Limited Range of Motion Pain Stair Climbing Evaluation Evaluation Level of Assist On Stairs Independent Devices Stair Climbing Assistive Devices Straight Cane Technique/Endurance Stair Climbing Direction Ascend Stair Climbing Technique Step to Step Number of Steps Climbed 6 PT-OP-J Posture/Palpation/Skin Start: 01/30/18 15:55 Freq: Status: Active Protocol: Document 01/30/18 16:06 EA (Rec: 01/30/18 16:35 EA [id number]) Palpation Assessment Location One Palpation Location left quads, hamstring, calf Palpation Findings Muscle Guarding Tenderness Skin Assessment Circumference Measurement 1 Location left mid knee joint Measurement (Centimeters) 42 Comments Left 42 cm; R 37 Incisional Assessment Incision Appearance/Comments no acute signs of inflammation /infection and is healing well . PT-OP-K Range of Motion Start: 01/30/18 15:55 Freq: Status: Active Protocol: Document 01/30/18 16:06 EA (Rec: 01/30/18 16:35 EA [id number]) Knee Goniometric Range of Motion Knee Measured in Degrees Right Patient Position Supine Flexion Active (degrees) 125 Extension Active (degrees) 0 Left Patient Position Supine Flexion Active (degrees) 75 Flexion Passive (degrees) 78 Extension Active (degrees) 10 Knee ROM Limitations Knee ROM Limitations Soft Tissue Tightness Pain PT-OP-M Strength Start: 01/30/18 15:55 Freq: Status: Active Protocol: Document 01/30/18 16:06 EA (Rec: 01/30/18 16:35 EA [id number]) Hip Strength Hip Manual Muscle Testing Right Flexion (L2) 5 Normal Extension (S1) 5 Normal Abduction 5 Normal Adduction 5 Normal External Rotation 4+ Good+ Internal Rotation 4+ Good+ Left Flexion (L2) 3+ Fair+ Extension (S1) 4- Good- Abduction 4- Good- Adduction 3+ Fair+ Knee Strength Knee Manual Muscle Testing Right Flexion (S2) 5 Normal Extension (L3) 5 Normal Left Reason Not Measured Orthopedic Precautions PT-OP-Q Treatments Start: 01/30/18 15:55 Freq: Status: Active Protocol: Document 03/08/18 13:15 EA (Rec: 03/08/18 13:22 EA [id number]) Gym Equipment Shuttle Recovery Unilateral Squats Resistance 2 Reps/Time 15 x 2 Bilateral Squats Details 0-90 knee flexion Resistance 5 cords Reps/Time 12 x 2 Therapeutic Exercises Supine Exercises 1 Supine Exercise Name Quads over roll Side left Equipment Used Rolled towel Reps/Minutes x 5 SH x 10 reps Comments performed after joint mob Sitting Exercises 1 Sitting Exercise Name Full quad extnsion Side left Resistance 2 -5lbs Reps/Minutes 15 reps x 2 Standing Exercises 4 Standing Exercise Name 4 lunges Reps/Minutes x 12 x 2 sets Comments hand support to no support 3 Standing Exercise Name Heel and toe raises Comments x 15 reps x 2 2 Standing Exercise Name side steps squat with YTB Resistance YTB to both ankle Comments x 10 reps x 2 1 Standing Exercise Name hip 3 way and knee flexion Resistance 4 lbs AW Reps/Minutes 12 x 2sets Manual Therapy Treatment Soft Tissue Mobilization 1 Body Location left Hams and Quads Mobilization Type Manual Lymphatic Drainage Myofascial Release Intensity/Depth Superficial Body Position Supine Joint Mobilizations 1 Joint PF Grade II PT-OP-R Modalities Start: 01/30/18 15:55 Freq: Status: Active Protocol: Document 03/08/18 13:22 EA (Rec: 03/08/18 13:22 EA [id number]) Electric Stimulation Electric Stimulation Interferential Current (IFC) Body Location left quads/distal Df muscles Duration (Minutes) 15 Combined With Heat/Cold Cold Pack Hot Pack/Cold Pack Treatment Cold Pack Patient Position Hooklying Treatment Duration (minutes) 15 Patient Tolerance Good PT-OP-T Assessment and Plan Start: 01/30/18 15:55 Freq: Status: Active Protocol: Document 03/08/18 13:15 EA (Rec: 03/08/18 13:22 EA [id number]) Physical Therapy Assessment Assessment Summary Assessment L Knee flexion/extension measurement: 104-3 degrees. Right 0-123 deg. Patient is progressing well as to functional mobility and treatment goals. Cont. with current plan-to progress as appropriate. Physical Therapy Plan Next Visit Focus/Plan Next Note Type Progress Note Next Visit Plan To fill up LEFS Please Sign and Return: I have reviewed this Plan of Care and certify that the skilled therapy services above are required to meet the patient?s needs. Physician Signature Date Printed Name and Credentials Clinical Instructor Signature Printed Name and Credentials
--- NOTE | 2018-03-15 11:15 | PT.OTN ---
Current Diagnoses Unilateral primary osteoarthritis, left knee (03/15/18) Physical Therapy Treatment Note PT-OP-A Visit Information Start: 01/30/18 15:55 Freq: Status: Active Protocol: Document 03/15/18 10:30 LRN (Rec: 03/15/18 11:05 LRN [id number]) Out-Patient Physical Therapy Visit Information Visit Information Visit Type Treatment Note Visit Start Time 10:30 Visit Stop Time 11:25 Total Visit Minutes 55 Visit Number 10 Number of PRODUCT DESIGNER Visits 0 PT-OP-B Current Condition Start: 01/30/18 15:55 Freq: Status: Active Protocol: Document 01/30/18 15:56 EA (Rec: 01/30/18 16:06 EA [id number]) Current Condition History of Current Condition Onset Date S/P left TKA 01/03/18 Current Complaints Decreased functional mobility tolerance due to pain History of Current Condition S/P Left TKA 01/03/18 Prior Treatments and Tests 2 weeks Physical rehabilation at [place] Future Testing and Treatments Planned Follow up to surgeon on January Treatment Goals Patient/Caregiver Goals 1. Be able to perform cyling 2. be able to row the boat 3. 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 Current Functional Impairments (Reported) Functional Limitations- ADL's Moderate difficulty w/ driving , toileting and bathig Functional Limitations- Mobility/Gait Moderate difficulty w/ uneven surface and stairs Functional Limitations- Recreation/ Unable at this time Hobbies PT-OP-C Subjective Start: 01/30/18 15:55 Freq: Status: Active Protocol: Document 03/15/18 10:30 LRN (Rec: 03/15/18 11:05 LRN [id number]) OP-PT Subjective Patient Comments Patient Comments Not too good at doing ex's becaiuse she was helping a friend. L TKA surgery was 08/12. Patient Questionnaires Lower Extremity Functional Scale LEFS Score 60 LEFS Impairment 20 to 39% Impaired (Score 48- 62) PT-OP-F Manual Assessment Start: 01/30/18 15:55 Freq: Status: Active Protocol: Document 01/30/18 16:06 EA (Rec: 01/30/18 16:35 EA [id number]) Manual Assessments Soft Tissue Assessment Soft Tissue Mobility Assessment Tight left hasmtring, quads, calf mucles Joint Mobility Assessment Joint Mobility Assessment N/A at this time due ms guarding PT-OP-G Mobility & Gait Start: 01/30/18 15:55 Freq: Status: Active Protocol: Document 01/30/18 16:06 EA (Rec: 01/30/18 16:35 EA [id number]) OP Gait Assessment Gait Gait Assistance Required: Independent Able to Maintain Weight Bearing Status Yes During Gait Assistive Devices Assistive Device Straight Cane Gait Deviations General Gait Pattern Antalgic Factors Limiting Gait Function Factors Limiting Gait Function Limited Range of Motion Pain Stair Climbing Evaluation Evaluation Level of Assist On Stairs Independent Devices Stair Climbing Assistive Devices Straight Cane Technique/Endurance Stair Climbing Direction Ascend Stair Climbing Technique Step to Step Number of Steps Climbed 6 PT-OP-J Posture/Palpation/Skin Start: 01/30/18 15:55 Freq: Status: Active Protocol: Document 03/15/18 10:30 LRN (Rec: 03/15/18 15:39 LRN [id number]) Palpation Assessment Location One Palpation Location left quads, hamstring, calf Palpation Findings Edema Muscle Guarding Tenderness Palpation Details General Edema at L knee. PT-OP-K Range of Motion Start: 01/30/18 15:55 Freq: Status: Active Protocol: Document 01/30/18 16:06 EA (Rec: 01/30/18 16:35 EA [id number]) Knee Goniometric Range of Motion Knee Measured in Degrees Right Patient Position Supine Flexion Active (degrees) 125 Extension Active (degrees) 0 Left Patient Position Supine Flexion Active (degrees) 75 Flexion Passive (degrees) 78 Extension Active (degrees) 10 Knee ROM Limitations Knee ROM Limitations Soft Tissue Tightness Pain PT-OP-M Strength Start: 01/30/18 15:55 Freq: Status: Active Protocol: Document 01/30/18 16:06 EA (Rec: 01/30/18 16:35 EA [id number]) Hip Strength Hip Manual Muscle Testing Right Flexion (L2) 5 Normal Extension (S1) 5 Normal Abduction 5 Normal Adduction 5 Normal External Rotation 4+ Good+ Internal Rotation 4+ Good+ Left Flexion (L2) 3+ Fair+ Extension (S1) 4- Good- Abduction 4- Good- Adduction 3+ Fair+ Knee Strength Knee Manual Muscle Testing Right Flexion (S2) 5 Normal Extension (L3) 5 Normal Left Reason Not Measured Orthopedic Precautions PT-OP-Q Treatments Start: 01/30/18 15:55 Freq: Status: Active Protocol: Document 03/15/18 10:30 LRN (Rec: 03/15/18 11:05 LRN [id number]) Cardio Equipment Recumbent Stepper (Sci-Fit) Duration (Minutes) 10 Resistance 3 Seat Position 13-9 Gym Equipment Shuttle Recovery Unilateral Squats Resistance 50# Reps/Time 15 x 2 Bilateral Squats Details 0-90 knee flexion Resistance 87# Reps/Time 15 x 2 Therapeutic Exercises Supine Exercises 2 Supine Exercise Name L knee flexion stretch with strap Side left Reps/Minutes 5' Comments Long hold 1 Supine Exercise Name L knee ext stretch Reps/Minutes 5' Comments Prolonged with low level stretch PT-OP-R Modalities Start: 01/30/18 15:55 Freq: Status: Active Protocol: Document 03/15/18 10:30 LRN (Rec: 03/15/18 11:05 LRN [id number]) Hot Pack/Cold Pack Treatment Cold Pack Patient Position Hooklying Treatment Duration (minutes) 10 Patient Tolerance Good PT-OP-T Assessment and Plan Start: 01/30/18 15:55 Freq: Status: Active Protocol: Document 03/15/18 10:30 LRN (Rec: 03/15/18 11:05 LRN [id number]) Physical Therapy Assessment Rehab Potential Rehabilitation Potential Good Impairments Impairments Activity Tolerance Edema Pain ROM Soft Tissue Mobility Strength Goals Four Impairment LEFS City Collector Goal (LTG) Patient will reach 55/80 of LEFs LTG Duration Goal met Three Impairment knee ROM [facility] Goal (LTG) Patient will exhibit left knee flexion/extnsion of 0-125 for functional squating activities. LTG Duration 04/20/18 Two Impairment edema Short Term Goal (STG) Patient will exhibits exhibit decrease left knee edema to decrease pain and imrpove weight bearing tolerance LTG Duration 04/20/18 One Impairment Impaired knee strength City Collector Goal (LTG) Patient will exhibit MMT of 4/ 5 to left knee flexors and extensors to enable patient perform stairs and other functional mobility without difficulty LTG Duration 04/20/18 Assessment Summary Assessment L Knee passive flexion/ extension measurement: lacking 3 deg's extension to 104 degrees flexion. No change in ROM since last session. Pt needs to spend more time on ROM ex's. The pt would benefit from skilled physical therapy to progress L knee ROM and strength to progress her towards her goal of returning to biking and skiing . Physical Therapy Plan Frequency and Duration Frequency of Treatment 2x/Week Plan of Care Start Date 01/30/18 Plan of Care End Date 04/20/18 Therapeutic Interventions Therapeutic Interventions Balance Training Gait Training Home Exercise Program Joint Mobilizations Manual Therapy Self-Care/Home Management Soft Tissue Mobilization Therapeutic Activities Therapeutic Exercises Modalities Cold Pack/Ice Massage Electric Stimulation Hot Packs Ultrasound Next Visit Focus/Plan Next Note Type Treatment Note Next Visit Plan MMT of L knee. Continue L TKA rehabilitation to improve L knee AROM/PROM for pt to return to biking and skiing.
--- NOTE | 2018-03-15 11:20 | PT.OPPOC ---
Current Diagnoses Unilateral primary osteoarthritis, left knee (03/15/18) Provider Visit Care Team Role Provider Type Doctor MD [place] Attending Provider Non-Staff Specialty: Medical Address: Phone: Fax: Email: Plan Of Care PT-OP-T Assessment and Plan Start: 01/30/18 15:55 Freq: Status: Active Protocol: Document 03/15/18 10:30 LRN (Rec: 03/15/18 11:05 LRN [id number]) Physical Therapy Assessment Rehab Potential Rehabilitation Potential Good Impairments Impairments Activity Tolerance Edema Pain ROM Soft Tissue Mobility Strength Goals Four Impairment LEFS Gas Appliance Mechanic Goal (LTG) Patient will reach 55/80 of LEFs LTG Duration Goal met Three Impairment knee ROM Gas Appliance Mechanic Goal (LTG) Patient will exhibit left knee flexion/extnsion of 0-125 for functional squating activities. LTG Duration 04/20/18 Two Impairment edema Short Term Goal (STG) Patient will exhibits exhibit decrease left knee edema to decrease pain and imrpove weight bearing tolerance LTG Duration 04/20/18 One Impairment Impaired knee strength Gas Appliance Mechanic Goal (LTG) Patient will exhibit MMT of 4/ 5 to left knee flexors and extensors to enable patient perform stairs and other functional mobility without difficulty LTG Duration 04/20/18 Assessment Summary Assessment L Knee passive flexion/ extension measurement: lacking 3 deg's extension to 104 degrees flexion. No change in ROM since last session. Pt needs to spend more time on ROM ex's. The pt would benefit from skilled physical therapy to progress L knee ROM and strength to progress her towards her goal of returning to biking and skiing . Physical Therapy Plan Frequency and Duration Frequency of Treatment 2x/Week Plan of Care Start Date 01/30/18 Plan of Care End Date 04/20/18 Therapeutic Interventions Therapeutic Interventions Balance Training Gait Training Home Exercise Program Joint Mobilizations Manual Therapy Self-Care/Home Management Soft Tissue Mobilization Therapeutic Activities Therapeutic Exercises Modalities Cold Pack/Ice Massage Electric Stimulation Hot Packs Ultrasound Next Visit Focus/Plan Next Note Type Treatment Note Next Visit Plan MMT of L knee. Continue L TKA rehabilitation to improve L knee AROM/PROM for pt to return to biking and skiing. Plan of Care Dates Plan of Care Start Date 01/30/18 Plan of Care End Date 04/20/18 Please Sign and Return: I have reviewed this Plan of Care and certify that the skilled therapy services above are required to meet the patient?s needs. Physician Signature Date Printed Name and Credentials Clinical Instructor Signature Printed Name and Credentials
--- NOTE | 2018-03-22 15:28 | PT.OTN ---
Current Diagnoses Unilateral primary osteoarthritis, left knee (03/22/18) Physical Therapy Treatment Note PT-OP-A Visit Information Start: 01/30/18 15:55 Freq: Status: Active Protocol: Document 03/22/18 12:54 LRN (Rec: 03/22/18 13:04 LRN [id number]) Out-Patient Physical Therapy Visit Information Visit Information Visit Type Treatment Note Visit Start Time 12:54 Visit Stop Time 13:31 Total Visit Minutes 37 Visit Number 11 Number of USER EXPERIENCE TEAM LEAD Visits 0 PT-OP-B Current Condition Start: 01/30/18 15:55 Freq: Status: Active Protocol: Document 01/30/18 15:56 EA (Rec: 01/30/18 16:06 EA [id number]) Current Condition History of Current Condition Onset Date S/P left TKA 01/03/18 Current Complaints Decreased functional mobility tolerance due to pain History of Current Condition S/P Left TKA 01/03/18 Prior Treatments and Tests 2 weeks Physical rehabilation at [place] Future Testing and Treatments Planned Follow up to surgeon on January Treatment Goals Patient/Caregiver Goals 1. Be able to perform cyling 2. be able to row the boat 3. 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 No medications for the past few weeks. Can't stay for ice due to helping a friend. Will take an ice bag to go. PT-OP-F Manual Assessment Start: 01/30/18 15:55 Freq: Status: Active Protocol: Document 01/30/18 16:06 EA (Rec: 01/30/18 16:35 EA [id number]) Manual Assessments Soft Tissue Assessment Soft Tissue Mobility Assessment Tight left hasmtring, quads, calf mucles Joint Mobility Assessment Joint Mobility Assessment N/A at this time due ms guarding PT-OP-G Mobility & Gait Start: 01/30/18 15:55 Freq: Status: Active Protocol: Document 01/30/18 16:06 EA (Rec: 01/30/18 16:35 EA [id number]) OP Gait Assessment Gait Gait Assistance Required: Independent Able to Maintain Weight Bearing Status Yes During Gait Assistive Devices Assistive Device Straight Cane Gait Deviations General Gait Pattern Antalgic Factors Limiting Gait Function Factors Limiting Gait Function Limited Range of Motion Pain Stair Climbing Evaluation Evaluation Level of Assist On Stairs Independent Devices Stair Climbing Assistive Devices Straight Cane Technique/Endurance Stair Climbing Direction Ascend Stair Climbing Technique Step to Step Number of Steps Climbed 6 PT-OP-J Posture/Palpation/Skin Start: 01/30/18 15:55 Freq: Status: Active Protocol: Document 03/15/18 10:30 LRN (Rec: 03/15/18 15:39 LRN [id number]) Palpation Assessment Location One Palpation Location left quads, hamstring, calf Palpation Findings Edema Muscle Guarding Tenderness Palpation Details General Edema at L knee. PT-OP-K Range of Motion Start: 01/30/18 15:55 Freq: Status: Active Protocol: Document 03/22/18 12:54 LRN (Rec: 03/22/18 13:25 LRN [id number]) Knee Goniometric Range of Motion Knee Measured in Degrees Left Patient Position Supine Flexion Active (degrees) 107 Flexion Passive (degrees) 109 Knee ROM Limitations Comments Passive L knee ext - 0 deg's Active L knee ext - 5 deg's PT-OP-M Strength Start: 01/30/18 15:55 Freq: Status: Active Protocol: Document 03/22/18 12:54 LRN (Rec: 03/22/18 13:25 LRN [id number]) Knee Strength Knee Manual Muscle Testing Left Flexion (S2) 5 Normal Extension (L3) 3+ Fair+ PT-OP-Q Treatments Start: 01/30/18 15:55 Freq: Status: Active Protocol: Document 03/22/18 12:54 LRN (Rec: 03/22/18 13:04 LRN [id number]) Cardio Equipment Bicycle (Upright) Duration (Minutes) 10 Resistance 5 Seat Position 7 Therapeutic Exercises Supine Exercises 2 Supine Exercise Name L knee flexion stretch with strap Side left Reps/Minutes 8' Comments Long hold 1 Supine Exercise Name L knee ext stretch with active quad sets. Side left Equipment Used 5# wgt x2 superior to patella Reps/Minutes 8' Comments Prolonged with low level stretch Sitting Exercises 1 Sitting Exercise Name Full quad extension Side left Resistance 5lbs Reps/Minutes 10 reps x 2 Standing Exercises 5 Standing Exercise Name Knee flexion Side left Resistance 5# Reps/Minutes 10x2 3 Standing Exercise Name Heel and toe raises Comments x 15 reps x 2 2 Standing Exercise Name squat Comments x 10 reps Self-Care/Home Management Treatment Activities Self-Care/Home Management Activities Encouraged pt to focus on stretching L knee to improve ROM. PT-OP-R Modalities Start: 01/30/18 15:55 Freq: Status: Active Protocol: Document 03/15/18 10:30 LRN (Rec: 03/15/18 11:05 LRN [id number]) Hot Pack/Cold Pack Treatment Cold Pack Patient Position Hooklying Treatment Duration (minutes) 10 Patient Tolerance Good PT-OP-T Assessment and Plan Start: 01/30/18 15:55 Freq: Status: Active Protocol: Document 03/22/18 12:54 LRN (Rec: 03/22/18 13:04 LRN [id number]) Physical Therapy Assessment Goals Four Impairment LEFS Detention Goal (LTG) Patient will reach 55/80 of LEFs LTG Duration Goal met Three Impairment knee ROM Loss Mitigation Specialist Goal (LTG) Patient will exhibit left knee flexion/extnsion of 0-125 for functional squating activities. LTG Duration 04/20/18 Two Impairment edema Short Term Goal (STG) Patient will exhibits exhibit decrease left knee edema to decrease pain and imrpove weight bearing tolerance LTG Duration 04/20/18 One Impairment Impaired knee strength Loss Mitigation Specialist Goal (LTG) Patient will exhibit MMT of 4/ 5 to left knee flexors and extensors to enable patient perform stairs and other functional mobility without difficulty LTG Duration 04/20/18 Progress Towards Goals Progress Comments Goal # 4 met (LEFS). Goal #1 Partially met (hamstring strength is 5/5). Assessment Summary Assessment Pt L knee ROM is improving. Quad weakness and 3-5 deg's Quad lag is present. Physical Therapy Plan Frequency and Duration Frequency of Treatment 2x/Week Plan of Care Start Date 01/30/18 Plan of Care End Date 04/20/18 Next Visit Focus/Plan Next Note Type Treatment Note Next Visit Plan Add stair stepping for strengthening. Continue L TKA rehabilitation to improve L knee AROM/PROM for pt to return to biking and skiing.
--- NOTE | 2018-03-29 15:31 | PT.OTN ---
Current Diagnoses Unilateral primary osteoarthritis, left knee (03/29/18) Physical Therapy Treatment Note PT-OP-A Visit Information Start: 01/30/18 15:55 Freq: Status: Active Protocol: Document 03/29/18 12:47 LRN (Rec: 03/29/18 12:55 LRN [id number]) Out-Patient Physical Therapy Visit Information Visit Information Visit Type Treatment Note Visit Note 11/06 Visit Start Time 12:47 Visit Stop Time 13:41 Total Visit Minutes 54 Visit Number 12 Number of FRONT LOADER RESIDENTIAL DRIVER Visits 0 Evaluation Information Evaluation Date 01/30/18 PT-OP-B Current Condition Start: 01/30/18 15:55 Freq: Status: Active Protocol: Document 01/30/18 15:56 EA (Rec: 01/30/18 16:06 EA [id number]) Current Condition History of Current Condition Onset Date S/P left TKA 01/03/18 Current Complaints Decreased functional mobility tolerance due to pain History of Current Condition S/P Left TKA 01/03/18 Prior Treatments and Tests 2 weeks Physical rehabilation at [place] Future Testing and Treatments Planned Follow up to surgeon on January Treatment Goals Patient/Caregiver Goals 1. Be able to perform cyling 2. be able to row the boat 3. 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 Can now walk down the stairs normal, not painful. PT-OP-F Manual Assessment Start: 01/30/18 15:55 Freq: Status: Active Protocol: Document 01/30/18 16:06 EA (Rec: 01/30/18 16:35 EA [id number]) Manual Assessments Soft Tissue Assessment Soft Tissue Mobility Assessment Tight left hasmtring, quads, calf mucles Joint Mobility Assessment Joint Mobility Assessment N/A at this time due ms guarding PT-OP-G Mobility & Gait Start: 01/30/18 15:55 Freq: Status: Active Protocol: Document 01/30/18 16:06 EA (Rec: 01/30/18 16:35 EA [id number]) OP Gait Assessment Gait Gait Assistance Required: Independent Able to Maintain Weight Bearing Status Yes During Gait Assistive Devices Assistive Device Straight Cane Gait Deviations General Gait Pattern Antalgic Factors Limiting Gait Function Factors Limiting Gait Function Limited Range of Motion Pain Stair Climbing Evaluation Evaluation Level of Assist On Stairs Independent Devices Stair Climbing Assistive Devices Straight Cane Technique/Endurance Stair Climbing Direction Ascend Stair Climbing Technique Step to Step Number of Steps Climbed 6 PT-OP-J Posture/Palpation/Skin Start: 01/30/18 15:55 Freq: Status: Active Protocol: Document 03/15/18 10:30 LRN (Rec: 03/15/18 15:39 LRN [id number]) Palpation Assessment Location One Palpation Location left quads, hamstring, calf Palpation Findings Edema Muscle Guarding Tenderness Palpation Details General Edema at L knee. PT-OP-K Range of Motion Start: 01/30/18 15:55 Freq: Status: Active Protocol: Document 03/29/18 12:47 LRN (Rec: 03/29/18 12:57 LRN [id number]) Knee Goniometric Range of Motion Knee Measured in Degrees Left Patient Position Supine Flexion Active (degrees) 105 Flexion Passive (degrees) 107 PT-OP-M Strength Start: 01/30/18 15:55 Freq: Status: Active Protocol: Document 03/22/18 12:54 LRN (Rec: 03/22/18 13:25 LRN [id number]) Knee Strength Knee Manual Muscle Testing Left Flexion (S2) 5 Normal Extension (L3) 3+ Fair+ PT-OP-Q Treatments Start: 01/30/18 15:55 Freq: Status: Active Protocol: Document 03/29/18 12:47 LRN (Rec: 03/29/18 12:55 LRN [id number]) Cardio Equipment Bicycle (Upright) Duration (Minutes) 10 Resistance 5 Seat Position 7 Gym Equipment Shuttle Recovery Unilateral Squats Resistance 50# Reps/Time 15 x 2 Bilateral Squats Details 0-90 knee flexion Resistance 87# Reps/Time 15 x 2 Therapeutic Exercises Supine Exercises 2 Supine Exercise Name L knee flexion stretch with strap Side left Reps/Minutes 8' Comments Long hold Standing Exercises 6 Standing Exercise Name Up/down steps foward and backward Side left Comments Up: leading left; Down: leading right. 5 Standing Exercise Name Knee flexion Side left Resistance 5# Reps/Minutes 15x2 3 Standing Exercise Name Heel and toe raises Comments x 15 reps x 2 Manual Therapy Treatment Manual Techniques 1 Type Manual stretch into L knee extension Body Location L knee Body Position Supine Comments 5 min PT-OP-R Modalities Start: 01/30/18 15:55 Freq: Status: Active Protocol: Document 03/29/18 12:47 LRN (Rec: 03/29/18 12:57 LRN [id number]) Hot Pack/Cold Pack Treatment Cold Pack Patient Position Hooklying Treatment Duration (minutes) 10 Patient Tolerance Good PT-OP-T Assessment and Plan Start: 01/30/18 15:55 Freq: Status: Active Protocol: Document 03/29/18 12:47 LRN (Rec: 03/29/18 12:55 LRN [id number]) Physical Therapy Assessment Goals Four Impairment LEFS Snf Goal (LTG) Patient will reach 55/80 of LEFs LTG Duration Goal met Three Impairment knee ROM Snf Goal (LTG) Patient will exhibit left knee flexion/extnsion of 0-125 for functional squating activities. LTG Duration 04/20/18 Two Impairment edema Short Term Goal (STG) Patient will exhibits exhibit decrease left knee edema to decrease pain and imrpove weight bearing tolerance LTG Duration 04/20/18 One Impairment Impaired knee strength Snf Goal (LTG) Patient will exhibit MMT of 4/ 5 to left knee flexors and extensors to enable patient perform stairs and other functional mobility without difficulty LTG Duration 04/20/18 Progress Towards Goals Progress Comments Goal # 4 met (LEFS). Goal #1 Partially met (hamstring strength is 5/5). No change in ROM. Assessment Summary Assessment Pt shows no change in ROM. She is helping a friend and probably not exercising enough at home. Pt encouraged ot focus on achieving goals set. Pt to see MD 04/04/18. Recommend pt continue therapy. Physical Therapy Plan Frequency and Duration Frequency of Treatment 2x/Week Plan of Care Start Date 01/30/18 Plan of Care End Date 04/20/18 Next Visit Focus/Plan Next Note Type Treatment Note Next Visit Plan Continue L TKA rehabilitation to improve L knee AROM/PROM for pt to return to biking and skiing. [ End ]
--- NOTE | 2018-04-13 14:09 | PT.OTN ---
Current Diagnoses Unilateral primary osteoarthritis, left knee (04/13/18) Physical Therapy Treatment Note PT-OP-A Visit Information Start: 01/30/18 15:55 Freq: Status: Active Protocol: Document 04/13/18 12:50 LRN (Rec: 04/13/18 13:40 LRN [id number]) Out-Patient Physical Therapy Visit Information Visit Information Visit Type Treatment Note Visit Note 12/04 Visit Start Time 12:50 Visit Stop Time 13:43 Total Visit Minutes 53 Visit Number 13 Number of DIRECTOR PRODUCT MANAGEMENT Visits 0 Evaluation Information Evaluation Date 01/30/18 PT-OP-B Current Condition Start: 01/30/18 15:55 Freq: Status: Active Protocol: Document 01/30/18 15:56 EA (Rec: 01/30/18 16:06 EA [id number]) Current Condition History of Current Condition Onset Date S/P left TKA 01/03/18 Current Complaints Decreased functional mobility tolerance due to pain History of Current Condition S/P Left TKA 01/03/18 Prior Treatments and Tests 2 weeks Physical rehabilation at [place] Future Testing and Treatments Planned Follow up to surgeon on January Treatment Goals Patient/Caregiver Goals 1. Be able to perform cyling 2. be able to row the boat 3. 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 Current Functional Impairments (Reported) Functional Limitations- ADL's Moderate difficulty w/ driving , toileting and bathig Functional Limitations- Mobility/Gait Moderate difficulty w/ uneven surface and stairs Functional Limitations- Recreation/ Unable at this time Hobbies PT-OP-C Subjective Start: 01/30/18 15:55 Freq: Status: Active Protocol: Document 04/13/18 12:50 LRN (Rec: 04/13/18 13:40 LRN [id number]) OP-PT Subjective Patient Comments Patient Comments States she saw the Dr in [place] and he was happy with her progress. She fell down one step one day but the Dr felt Patient Questionnaires Lower Extremity Functional Scale LEFS Score 60 LEFS Impairment 20 to 39% Impaired (Score 48- 62) PT-OP-F Manual Assessment Start: 01/30/18 15:55 Freq: Status: Active Protocol: Document 01/30/18 16:06 EA (Rec: 01/30/18 16:35 EA [id number]) Manual Assessments Soft Tissue Assessment Soft Tissue Mobility Assessment Tight left hasmtring, quads, calf mucles Joint Mobility Assessment Joint Mobility Assessment N/A at this time due ms guarding PT-OP-G Mobility & Gait Start: 01/30/18 15:55 Freq: Status: Active Protocol: Document 01/30/18 16:06 EA (Rec: 01/30/18 16:35 EA [id number]) OP Gait Assessment Gait Gait Assistance Required: Independent Able to Maintain Weight Bearing Status Yes During Gait Assistive Devices Assistive Device Straight Cane Gait Deviations General Gait Pattern Antalgic Factors Limiting Gait Function Factors Limiting Gait Function Limited Range of Motion Pain Stair Climbing Evaluation Evaluation Level of Assist On Stairs Independent Devices Stair Climbing Assistive Devices Straight Cane Technique/Endurance Stair Climbing Direction Ascend Stair Climbing Technique Step to Step Number of Steps Climbed 6 PT-OP-J Posture/Palpation/Skin Start: 01/30/18 15:55 Freq: Status: Active Protocol: Document 03/15/18 10:30 LRN (Rec: 03/15/18 15:39 LRN [id number]) Palpation Assessment Location One Palpation Location left quads, hamstring, calf Palpation Findings Edema Muscle Guarding Tenderness Palpation Details General Edema at L knee. PT-OP-K Range of Motion Start: 01/30/18 15:55 Freq: Status: Active Protocol: Document 04/13/18 12:50 LRN (Rec: 04/13/18 13:40 LRN [id number]) Knee Goniometric Range of Motion Knee Measured in Degrees Left Patient Position Supine Flexion Active (degrees) 107 Flexion Passive (degrees) 110 Knee ROM Limitations Comments Passive L knee ext - 0 deg's Active L knee ext - 6 deg's PT-OP-M Strength Start: 01/30/18 15:55 Freq: Status: Active Protocol: Document 03/22/18 12:54 LRN (Rec: 03/22/18 13:25 LRN [id number]) Knee Strength Knee Manual Muscle Testing Left Flexion (S2) 5 Normal Extension (L3) 3+ Fair+ PT-OP-Q Treatments Start: 01/30/18 15:55 Freq: Status: Active Protocol: Document 04/13/18 12:50 LRN (Rec: 04/13/18 13:40 LRN [id number]) Cardio Equipment Bicycle (Upright) Duration (Minutes) 10 Resistance 5 Seat Position 6 Gym Equipment Shuttle Recovery Unilateral Squats Resistance 50# Reps/Time 15x2 Bilateral Squats Details 0-90 knee flexion Resistance 62#, 87#, 100# Reps/Time 15x2, 15 x 2, 15x, respectively Therapeutic Exercises Supine Exercises 2 Supine Exercise Name L knee flexion stretch with strap Side left Reps/Minutes 12' Comments Long hold 1 Supine Exercise Name L knee ext stretch with active quad sets. Side left Equipment Used 5# wgt x2 superior to patella Reps/Minutes 8' Comments Prolonged with low level stretch Sitting Exercises 1 Sitting Exercise Name Knee flex/ext Side left Comments AROM for strength testing Standing Exercises 6 Standing Exercise Name Up/down steps forward and backward Side left Self-Care/Home Management Treatment Activities Self-Care/Home Management Activities Brief review of areas of focus for HEP (AROM/PROM for L knee flex>ext), strengthening. PT-OP-R Modalities Start: 01/30/18 15:55 Freq: Status: Active Protocol: Document 04/13/18 12:50 LRN (Rec: 04/13/18 13:41 LRN [id number]) Hot Pack/Cold Pack Treatment Cold Pack Patient Position Hooklying Treatment Duration (minutes) 10 Patient Tolerance Good PT-OP-T Assessment and Plan Start: 01/30/18 15:55 Freq: Status: Active Protocol: Document 04/13/18 12:50 LRN (Rec: 04/13/18 13:40 LRN [id number]) Physical Therapy Assessment Impairments Impairments Edema Pain ROM Strength Goals Four Impairment LEFS Flooring Salesperson Goal (LTG) Patient will reach 55/80 of LEFs LTG Duration GOAL MET Three Impairment knee ROM Snf Goal (LTG) Patient will exhibit left knee flexion/extension of 0-125 for functional squatting activities. LTG Duration Goal Not Met Two Impairment edema Short Term Goal (STG) Patient will exhibit decrease left knee edema to decrease pain and improve weight bearing tolerance STG Duration Goal Not Met LTG Duration 04/13/18 One Impairment Impaired knee strength Snf Goal (LTG) Patient will exhibit MMT of 4/ 5 to left knee flexors and extensors to enable patient perform stairs and other functional mobility without difficulty LTG Duration GOAL MET Progress Towards Goals Progress Comments Goals 1 & 4 Met. Goal #2 for edema reduction not met, possibly due to recent fall on knees. Goal #3 Not met. Pt needs continued stretching at home. Assessment Summary Assessment L knee strength is 5/5; therefore goal #1 met. Pt is limited in the left knee ROM ( 6-110 deg's) due to pain and soft tissue restrictions. Pt feels ready to be discharged from therapy and is happy with progress. Physical Therapy Plan Discharge Physical Therapy Discharge Reasons Patient Request Discharge Comments Pt has good L knee strength. Her AROM is 6-107 deg's, and PROM is 0-110 deg's. Further therapy for knee ROM would be appropriate, but pt feels ready for discharge to an independent program. If the pt would keep up with her HEP she should be able to improve on her knee mobility with time .
== END 2018-08-24 10:20 ==
LOC: PHYS 12:45
PROVIDERS: PCP Physician Assistant; Visit Provider Physician Assistant
DX: M17.12 Unilateral primary osteoarthritis, left knee (principal)
CPT/HCPCS: 97010; 97014; 97110; 97140; 97161; 97535; G0283

== ENCOUNTER → 2019-04-25 12:55 | Outpatient (CLI) | payer MEDICARE, SELFPAY | PROVIDERS: PCP Physician Assistant; Visit Provider Internal Medicine | DX: M81.0 Age-related osteoporosis without current pathological fracture (principal); Z78.0 Asymptomatic menopausal state | CPT/HCPCS: 77080; 77081 ==

== ENCOUNTER → 2019-07-04 14:26 | Outpatient (CLI) | payer MEDICARE, SELFPAY ==
--- NOTE | 2019-07-04 | DI.RAD.S_ITS ---
PROCEDURE: XR SHOULDER RT MIN 2V INDICATIONS: UPPER ARM PAIN TECHNIQUE: 3 views of the shoulder were acquired. COMPARISON: None. FINDINGS: Bones: No fractures or dislocations. No suspicious bony lesions. Visualized ribs appear intact. Moderate to severe acromioclavicular degenerative narrowing as well as moderate glenohumeral narrowing. Humeral head is high riding. Soft tissues: No suspicious soft tissue calcifications. IMPRESSION: Acromioclavicular and glenohumeral degenerative narrowing. High riding appearance of the humeral head, which can be indicative of rotator cuff pathology. Dictated by: Zenia Zacarias M.D. on 07/04/2019 at 16:20 Approved by: Zenia Zacarias M.D. on 07/04/2019 at 16:21
--- NOTE | 2019-07-04 | DI.RAD.S_ITS ---
PROCEDURE: XR SHOULDER LT MIN 2V INDICATIONS: UPPER ARM PAIN TECHNIQUE: 3 views of the shoulder were acquired. COMPARISON: None. FINDINGS: Bones: No fractures or dislocations. No suspicious bony lesions. Visualized ribs appear intact. There is severe acromioclavicular and moderate glenohumeral degenerative narrowing. Humeral head is mildly high riding. Soft tissues: No suspicious soft tissue calcifications. IMPRESSION: Acromioclavicular and glenohumeral degenerative narrowing. High riding appearance of the humeral head, which can be indicative of rotator cuff pathology. Dictated by: Zenia Zacarias M.D. on 07/04/2019 at 16:21 Approved by: Zenia Zacarias M.D. on 07/04/2019 at 16:22
== END ==
PROVIDERS: PCP Physician Assistant; Visit Provider Internal Medicine
DX: M79.621 Pain in right upper arm (principal); M79.622 Pain in left upper arm
CPT/HCPCS: 73030

== ENCOUNTER 2019-08-18 11:58 | Emergency (ER) | payer MEDICARE, SELFPAY ==
[2019-08-18 12:22] VITALS: BP 165/76; PULSE 75; RESP 20; O2SAT 97; BMI 32.0
[2019-08-18 12:29] VITALS: TEMP 37.1
--- NOTE | 2019-08-18 12:29 | DI.RAD.S_ITS ---
PROCEDURE: XR HIP W PEL IF DONE LT 2V INDICATIONS: pain left hip/groin TECHNIQUE: AP pelvis with lateral view(s) of the left hip(s). COMPARISON: None. FINDINGS: Bones: No fractures or dislocations. Pelvic ring appears intact. No suspicious bony lesions. Moderate degenerative hip joint space narrowing is present. Soft tissues: The visualized bowel gas pattern is normal. No suspicious soft tissue calcifications. IMPRESSION: Osteoarthritic changes within the hips. No visualized acute fracture or dislocation. However, if clinical concern and/or pain persist, short interval imaging followup in 7-10 days is recommended, as occult injury cannot be definitively excluded. Dictated by: Zenia Zacarias M.D. on 08/18/2019 at 13:06 Approved by: Zenia Zacarias M.D. on 08/18/2019 at 13:06
[2019-08-18] MEDS: METHOCARBAMOL 500 MG TABLET PO (13:48)
[2019-08-18] MEDS: KETOROLAC 60 MG/2 ML VIAL 15 MG IM (13:48)
--- NOTE | 2019-08-18 13:55 | PC.NURSE ---
Rec'd report from DOUG Morales. Pt resting in bed. XR obtained and negative for fracture. Meds given per NOV. pt tolerated well. NAD. awaiting DC paperwork
[2019-08-18 14:48] VITALS: BP 150/78; PULSE 76; RESP 16; O2SAT 97
--- NOTE | 2019-08-18 17:27 | ED.EXTPRO ---
HPI - Extremity Problem <RASHAD Brown - Last Filed: 08/18/19 17:33> General Chief complaint: Extremity Problem,Nontraumatic Stated complaint: total knee replace/crotch pain Time Seen by Provider: 08/18/19 12:14 Source: patient and family Mode of arrival: Family Vehicle Limitations: no limitations History of Present Illness HPI Narrative: The patient is an 78-year-old female nonsmoker with history of bilateral knee replacements who presents with a chief complaint of left hip and groin pain. She states has been ongoing for year. She states it got worse over the past 2 days when she was preparing to move, loading boxes etc. She has tried 1 ibuprofen for the pain she denies any fevers nausea vomiting diarrhea. She states is worse with movement and ambulation. She has not seen her primary care provider for this as he is in [place]. She is in the process of moving to [place]. She denies any falls or trauma. Related Data Previous Rx's Medication Instructions Recorded amoxicillin-pot clavulanate 875 mg PO BID #20 tab 06/15/16 [Augmentin] ketorolac 10 mg PO TID PRN #15 tab 08/18/19 methocarbamol 500 mg PO TID PRN #14 tab 08/18/19 Allergies Allergy/AdvReac Type Severity Reaction Status Date / Time No Known Drug Allergies Allergy Verified 08/18/19 12:25 Review of Systems <RASHAD Brown - Last Filed: 08/18/19 17:33> Review of Systems Narrative: GENERAL: Denies chills, fatigue, malaise, fever, sweats. HEENT: Denies sinus pain, ear pain, sore throat, difficulty swallowing, dizziness. RESPIRATORY: Denies dyspnea, cough, wheezing, hemoptysis, sputum. CARDIOVASCULAR: Denies chest pain, palpitations, orthopnea, edema, GASTROINTESTINAL: Denies nausea, vomiting, abdominal pain, diarrhea, constipation, melena. : Denies dysuria, frequency, incontinence, hematuria, urinary retention. MUSCULOSKELETAL: See HPI SKIN: Denies rash, skin lesions, or other NEUROLOGIC: Denies weakness, headache, numbness, change in speech, confusion, seizures, incoordination. PSYCHIATRIC: No concerning psychosocial issues. 12 point review of systems is negative except for those stated above Patient History <HENNA Brown - Last Filed: 08/18/19 17:33> Social History Smoking Status: Never smoker alcohol intake frequency: a few times a month Substance Use Type: does not use Exam <HENNA Brown - Last Filed: 08/18/19 17:33> Narrative Exam Narrative: GENERAL: This is a well-nourished, well-developed patient, no acute distress HEAD: Atraumatic. Normocephalic. No temporal or scalp tenderness. EYES: Pupils equal round and reactive. Extraocular motions intact. No scleral icterus. No injection or drainage. ENT: Nose without bleeding, purulent drainage or septal hematoma. Throat without erythema, tonsillar hypertrophy or exudate. Uvula midline. Airway patent. NECK: Trachea midline. No JVD or lymphadenopathy. Supple, nontender, no meningeal signs. Respiratory: No increased respiratory effort. No cough. No accessory muscle use. Clear lung bowen bilaterally. Cardiac: Regular rate and rhythm EXTREMITIES: Intact pedal pulse left leg. Decreased range of motion all bowen left hip. Pain to palpation diffuse left hip and inguinal area. BACK: Nontender without deformity or crepitance. No flank tenderness. NEURO: AOx3. SKIN: No rash or erythema on visible skin or left inguinal area Initial Vital Signs Initial Vital Signs: Vital Signs Pulse Rate 75 08/18/19 12:22 Respiratory Rate 20 08/18/19 12:22 Blood Pressure 165/76 H 08/18/19 12:22 Pulse Oximetry 97 08/18/19 12:22 <Shira Adrian MD - Last Filed: 08/19/19 07:00> Initial Vital Signs Initial Vital Signs: Vital Signs Pulse Rate 75 08/18/19 12:22 Respiratory Rate 20 08/18/19 12:22 Blood Pressure 165/76 H 08/18/19 12:22 Pulse Oximetry 97 08/18/19 12:22 Course <HENNA Brown - Last Filed: 08/18/19 17:33> Orders Ordered: Discontinued Medications Ketorolac Tromethamine (Toradol) 15 mg IM NOW ONE Stop: 08/18/19 13:06 Last Admin: 08/18/19 13:48 Dose: 15 mg Documented by: REI Methocarbamol (Robaxin) 500 mg PO NOW ONE Stop: 08/18/19 13:06 Last Admin: 08/18/19 13:48 Dose: 500 mg Documented by: REI Vital Signs Vital signs: Vital Signs - 8 hr 08/18/19 12:22 08/18/19 12:29 08/18/19 14:48 Temperature 98.7 F Pulse Rate 75 76 Respiratory Rate 20 16 Blood Pressure 165/76 H 150/78 H Pulse Oximetry 97 97 <Shira Adrian MD - Last Filed: 08/19/19 07:00> Orders Ordered: Discontinued Medications Ketorolac Tromethamine (Toradol) 15 mg IM NOW ONE Stop: 08/18/19 13:06 Last Admin: 08/18/19 13:48 Dose: 15 mg Documented by: REI Methocarbamol (Robaxin) 500 mg PO NOW ONE Stop: 08/18/19 13:06 Last Admin: 08/18/19 13:48 Dose: 500 mg Documented by: REI Vital Signs Vital signs: Vital Signs - 8 hr 08/18/19 12:22 08/18/19 12:29 08/18/19 14:48 Temperature 98.7 F Pulse Rate 75 76 Respiratory Rate 20 16 Blood Pressure 165/76 H 150/78 H Pulse Oximetry 97 97 MDM - Extremity (Nontraumatic) <HENNA Brown - Last Filed: 08/18/19 17:33> Imaging Data Hip x-ray: Radiologist's impression: [place] [address] XRay Report Signed Patient: Leonid Montero#: [id number] : 8Acct:[id number] Age/Sex: 78 / FDate of Service: 08/18/19 Loc: ED Accession Number: [id number] Procedure: XR hip w pel if done LT 2V Ordering Provider: Roxie Stone PROCEDURE: XR HIP W PEL IF DONE LT 2V INDICATIONS: pain left hip/groin TECHNIQUE: AP pelvis with lateral view(s) of the left hip(s). COMPARISON: None. FINDINGS: Bones: No fractures or dislocations. Pelvic ring appears intact. No suspicious bony lesions. Moderate degenerative hip joint space narrowing is present. Soft tissues: The visualized bowel gas pattern is normal. No suspicious soft tissue calcifications. IMPRESSION: Osteoarthritic changes within the hips. No visualized acute fracture or dislocation. However, if clinical concern and/or pain persist, short interval imaging followup in 7-10 days is recommended, as occult injury cannot be definitively excluded. Dictated by: Zenia Zacarias M.D. on 08/18/2019 at 13:06 Approved by: Zenia Zacarias M.D. on 08/18/2019 at 13:06 [facility] Narrative Medical decision making narrative: The patient is an 78-year-old female who presents with a chief complaint of left hip and groin pain. She states this pain has been going on for at least a year, but has been worsening with her increased movement and lifting given that she is moving to [place]. X-rays indicate degenerative hip joint space. Patient was treated with slight Robaxin and Toradol in the emergency department and was able to ambulate without difficulty. I discussed at length the importance of follow-up with her primary care provider, possible benefits of PT etc. Encouraged rest and ice. Encourage coming back to the emergency department for any acute concerns. Patient has no questions or concerns upon discharge and states understanding of return precautions as well as follow-up care. Discharge Plan Departure Patient Disposition: Home Clinical Impression: Acute hip pain Qualifiers: Laterality: left Qualified Code(s): M25.552 - Pain in left hip Discharge Date/Time: 08/18/19 14:49 Instructions: DI for Osteoarthritis, DI for Hip Pain Activity Restrictions/Additional Instructions: Your x-ray is concerning for osteoarthritic changes in your hip. Please rest, use ice. I [facility] have given you a prescription of Toradol. This is an NSAID. Do not combine it with other NSAIDs such as Aleve or ibuprofen. I suggest taking it with some food, as it can irritate your stomach. I have also sent in a slight muscle relaxer. Be aware that this can be sedating. Please follow up with primary care provider in the next few days. Please come back to the emergency department for any acute concerns such as chest pain, shortness of breath etc Prescriptions: New ketorolac 10 mg tablet 10 mg PO TID PRN (Reason: pain) Qty: 15 RF: 0 methocarbamol 500 mg tablet 500 mg PO TID PRN (Reason: muscle spasm) Qty: 14 RF: 0 No Action amoxicillin-pot clavulanate [Augmentin] 875 MG/125 MG tablet 875 mg PO BID Qty: 20 RF: 0
== END 2019-08-18 14:49 | disposition home or self-care (01) ==
PROVIDERS: Emergency Provider Nurse Practitioner Family
DX: M25.552 Pain in left hip (principal)
CPT/HCPCS: 73502; 96372; 99282; 99283; J1885